=== PATIENT | female | born 1990 | race Caucasian/White ===

== ENCOUNTER 2022-05-24 15:33 | Emergency (ER) | payer MEDICAID, SELFPAY ==
[2022-05-24 15:45] VITALS: BP 123/79; PULSE 77; RESP 16; TEMP 36.5; O2SAT 100; BMI 25.1
--- NOTE | 2022-05-24 18:30 | ED_ITS ---
HPI - General Adult General Chief complaint: Extremity Pain/Injury, Lower Stated complaint: PAIN IN KNEES Time Seen by Provider: 05/24/22 16:17 History of Present Illness HPI narrative: This 32-year-old female comes in reporting bilateral knee pain. She states that she is actually had this pain since age 17. She ran cross-country at that time and was having pain. Since then she has been running for exercise but complains of recurrent bilateral knee pain that is localized at the quadriceps tendon insertion into the patella. She states that she was told not to run anymore and has not been doing so over the past 5 years. Yet she continues to have pain and notes that at her work she frequently has to bend and squat and sometimes she is not able to get up because of pain in this area of her knees. She has been to physical therapy on 3 different occasions which did provide some relief. She also has had x-ray imaging done in the distant past. She does not report any new injury event or strenuous activity. She is otherwise in good health. Related Data Home Medications Medication Instructions Recorded Confirmed gabapentin .ROUTE 05/24/22 Allergies Allergy/AdvReac Type Severity Reaction Status Date / Time No Known Drug Allergies Allergy Verified 05/24/22 15:49 Review of Systems Status of ROS: Reports: 10 or more systems reviewed and unremarkable except as noted in History and below Narrative: Constitutional: No fevers, no weight gain or loss. Eyes: No discharge. No vision changes. HENT: No congestion, no sore throat, no ear pain. Cardiovascular: No chest pain, no palpitations. Respiratory: No shortness of breath, no wheezes, no cough. Gastrointestinal: No abdominal pain, no vomiting, no diarrhea. Genitourinary: No dysuria, no hematuria. Musculoskeletal: Normal range of motion. Bilateral knee pain as described above. Skin: No rashes, no pruritis. Neurological: No dizziness, weakness, sensory change, speech change. Endo/Heme/Allergies: No bruising or bleeding. No polydipsia. Pysch: no suicidality, no anxiety, no insomnia. All other systems reviewed and are negative. [facility] Social History Smoking Status: Never smoker Do you use any of these nicotine containing products: None Second hand tobacco smoke exposure: No How often do you have a drink containing alcohol: never How often do you have six or more drinks on one occasion: Never AUDIT-C Alcohol total score: 0 Non-prescribed substance use: denies use service: No Exam Narrative: Exam Narrative: Constitutional: Well-developed, well-nourished, no acute distress. HEENT: Normocephalic, atraumatic. Neck: Normal range of motion. Nontender. Supple. Heart: Intact distal pulses. Lungs: No chest discomfort. No wheezes, rhonchi, or rales. Abdomen: Nontender. Back: Normal range of motion. Extremities: Normal range of motion. Bilateral knee pain as described above. She has tenderness when palpating where the quadriceps tendons insert on superior portion of the patella bilaterally. She does not have any joint effusion. There is no would ligament instability. She is able to raise each leg from the bed and is ambulating normally. Skin: Intact. No rash. Warm. No erythema or pallor. Neurologic: No altered sensation. No weakness. Alert and oriented. Psychiatric: No suicidality. No anxiety or depression. No insomnia. Nursing notes and vitals signs are reviewed. Const: Vital Signs, click to edit/add: Vital Signs - 24 hr 05/24/22 15:45 Temperature 97.7 F Pulse Rate [Pulse Oximeter] 77 Respiratory Rate 16 Blood Pressure [Ri ght Upper Arm] 123/79 Pulse Oximetry 100 Oxygen Delivery Me thod Room Air Course Vital Signs Vital signs: Initial Vital Signs Temperature 97.7 F 05/24/22 15:45 Temperature Source Temporal Artery Scan 05/24/22 15:45 Pulse Rate 77 05/24/22 15:45 Respiratory Rate 16 05/24/22 15:45 Blood Pressure 123/79 05/24/22 15:45 Blood Pressure Mean 93 05/24/22 15:45 Blood Pressure Position Supine 05/24/22 15:45 Pulse Oximetry 100 05/24/22 15:45 Oxygen Delivery Method 05/24/22 15:45 Vital Signs Temperature 97.7 F 05/24/22 15:45 Pulse Rate 77 05/24/22 15:45 Respiratory Rate 16 05/24/22 15:45 Blood Pressure 123/79 05/24/22 15:45 Pulse Oximetry 100 05/24/22 15:45 Oxygen Delivery Method 05/24/22 15:45 Temperature 97.7 F 05/24/22 15:45 Pulse Rate 77 05/24/22 15:45 Respiratory Rate 16 05/24/22 15:45 Blood Pressure 123/79 05/24/22 15:45 Pulse Oximetry 100 05/24/22 15:45 Oxygen Delivery Method 05/24/22 15:45 Medical Decision Making MDM Narrative Medical decision making narrative: This patient comes in with chronic and recently worsening bilateral knee pain as described above. I did discuss the role of imaging but this was declined for now given no specific mechanism of injury that x-ray imaging would benefit at this time. She also reports some hip pain and there is possibility that this may be related to a patellofemoral syndrome. I did make arrangements for follow-up with orthopedic clinic. She received a prescription for some tablets of tramadol. Discharge Plan Discharge Clinical Impression: Bilateral knee pain Patient Disposition: Home, Self-Care Condition: Stable Additional Instructions: Activity as tolerated. Follow up with orthopedic clinic. Use medication as needed and directed. Return if worsening. Prescriptions: No Action gabapentin .ROUTE Follow Up/Referrals: Bhavani Hamlin DO [Primary Care Provider] - Stand Alone Forms: [employer] Info Instructions
--- OUTSIDE RECORDS SUMMARY | 2022-05-24 18:44 | XMS_ITS | Clinical Summary ---
:1990 Author Organization [facility] Address [address], [place] [address] Care Team Providers Name Role Phone Unavailable Primary Care Provider Unavailable Source Comments You are receiving this document as you are listed as the primary care provider,follow-up provider, or the patient has been referred to you for consultation.This is in compliance with the Medicare and Medicaid EHR Incentive Program,which states Providers who transition their patient to another setting of careor provider of care or refers their patient to another provider of care shouldprovide summarycare record for each transition of care or referral. [employer] Allergies No known active allergies Medications Medication Sig Dispensed Refills Start Date End Date Status escitalopram oxalate Take 20 mg by 0 03/19/2021 Active (LEXAPRO) 20 MG tablet mouth. gabapentin (NEURONTIN) Take 300 mg by 0 02/11/2021 Active 300 MG capsule mouth. 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 CARSON (generalized anxiety disorder) 06/17/2021 Obsessive-compulsive disorder 06/17/2021 Vitamin D insufficiency 06/17/2021 Social History Tobacco Use Types Packs/Day Years Used Date Smoking Tobacco: Never Assessed Sex Assigned at Date Recorded Not on file Last Filed Vital Signs Vital Sign Reading Time Taken Comments Blood Pressure 138/94 06/17/2021 9:32 AM CDT Pulse 81 06/17/2021 9:32 AM CDT Temperature 36.7 ??C (98 ??F) 06/17/2021 9:30 AM CDT Respiratory Rate - - Oxygen Saturation - - Inhaled Oxygen Concentration - - Weight 59.6 kg (131 lb 6.4 oz) 06/17/2021 9:30 AM CDT Height 156.5 cm (5' 1.61) 06/17/2021 9:30 AM CDT Body Mass Index 24.34 06/17/2021 9:30 AM CDT Plan of Treatment Health Maintenance Due Date Last Done Comments Cervical Cancer Screening 1990 Due Hep C Screening (Preventive 1990 Services) HepB (1) 1990 COVID-19 Vaccine (#1) 1990 HepA (2 of 2 - 2-dose 09/19/2006 03/19/2006 series) HIV Screening (Preventive 2008 Services) Adult Preventive Visit 2010 Influenza (#1) 2022 07/01/2021, 05/22/2020, 05/27/2019, Additional history exists DTaP/Tdap/Td (4 - Tdap) 05/07/2025 05/07/2015, 05/13/2013, 11/20/2003, Additional history exists Zoster/Shingles (1 of 2) 2042 HPV Vaccine Aged Out No longer eligib le based on patient 's age to complete this topic Hib Aged Out No longer eligib le based on patient 's age to complete this topic IPV (Polio) Aged Out No longer eligib le based on patient 's age to complete this topic MCV4 Aged Out No longer eligib le based on patient 's age to complete this topic Pneumococcal Aged Out No longer eligib le based on patient 's age to complete this topic
--- OUTSIDE RECORDS SUMMARY | 2022-05-24 18:44 | XMS_ITS | Clinical Summary ---
:1990 Author Organization [employer] [facility] [place] [address] Care Team Providers Name Role Phone Bhavani Hamlin DO Primary Care Provider Allergies No known active allergies Medications Medication Sig Dispensed Refills Start Date End Date Status gabapentin Take 1 Capsule 180 capsule. 3 02/11/2021 Active (NEURONTIN) 300 mg (300 mg) by mouth capsuleIndications: 2 times daily. Vestibular migraine ferrous sulfate, 65 Take 1 Tablet 90 Tablet 3 03/19/2021 Active mg elemental, (325 mg) by mouth tabletIndications: once daily with a Iron deficiency meal. escitalopram oxalate Take 1 Tablet (20 90 Tablet 3 03/19/2021 Active (LEXAPRO) 20 mg mg) by mouth tabletIndications: every morning. Anxiety aluminum chloride Apply topically 35 mL 0 04/29/2022 Active (Drysol) 20 % to affected external area(s) at solutionIndications: bedtime. Pyogenic granuloma Active Problems Problem Noted Date History of premature rupture of membranes (PPR OM) 04/08/2018 [facility] Encounter for preconception consultation 8 Overview: [facility] PRECONCEPTION CONSULTATION ON 03/25/18 REASON FOR CONSULT: Pre preg consult, pr ior hx PPROM at 22 and 27 weeks [place] records are scanned in [facility] APPOINTMENT: MD Consultation PRIMARY DIAGNOSIS: 27 y.o. PTD - 2013 22w loss, PPROM, abruption, n eg quad, no autopsy PTD - 2017 PPROM, - living chorioam nionitis stage 2 on path report Hx self cutting at 17 yo Hx orthostatic hypotension Hx of seizure - one time Vertigo/Vestibular Migraines Hx MRSA - treated REFERRING PHYSICIAN/PHONE/LAST UPDATE: Jeannie Hamlin DO [place] [phone] Primary MD approves scheduling of recomm ended ultrasounds/testing: Yes SPECIALISTS/CONSULTS: [facility] Include: Specialty MD Clinic Name Phone# [place] GENETICS: PROCEDURES: PERTINENT LABS: Blood type A positive PERTINENT MEDS: Gabapentin - dizziness BCP MD PLAN OF CARE: Evaluation regarding contraception options 03/19/2017 MRSA (methicillin resistant staph aureus) culture posi tive 08/03/2015 Overview: +MRSA mastitis 07/2015 Prior with demise 12/22/2014 History of placenta abruption 12/22/2014 Deliberate self-cutting 04/17/2009 Resolved Problems Problem Noted Date Resolved Date Malpositioned intrauterine device (IUD) 04/02/2017 04/02/2017 IUD (intrauterine device) in place 03/26/201704/02 Overview: Ra 03/26/2017 - malpositioned - remov ed 04/02/2017 , subsequent 02/15/2015 07/28/2015 Overview: Perinatology consult at 15 weeks due to history of IUFD/PPROM. Ultrasound of 15 weeks with cervix 5 cm. Repeat level 2 ultrasound at 22 weeks with cervical length 5cm, per perinatology no further follow-up with perinatology needed Its the boy! History of premature rupture of membranes (PROM) in 12/22/2014 07/28/2015 previous , currently Breech delivery 04/29/2014 07/28/2015 premature rupture of membranes (PPROM) delivered, 07/28/2015 current hospitalization Threatened in second trimester 04/28/2014 07/28/2015 care, first 02/07/2014 4 Supervision of normal first 01/13/2014 Encounters Date Type Specialty Care Team Description 05/20/2022 Office Visit Laya Mao Consult (Pyogen ic granuloma MD Chey right side of f maribel/neck referred by Dr. Dasilva) 05/20/2022 Travel 04/30/2022 Telephone Kailyn Dasilva Prior A uthorization MD Taryn (aluminum chlor delphine (Drysol) 20 % external s olution DENIED/ EXCLUSI ON) 04/29/2022 Office Visit Kailyn Dasilva Derm Pr oblem (blood blister MD Taryn on right side o f neck) 04/29/2022 Travel 04/07/2022 Lab Requisition Homero Atkinson MD from Last 3 Months Immunizations Name Administration Dates Next Due AMB Influenza, IIV4 PF (=>6 mos 05/27/2019 Flulaval,Fluzone Fluarix)(Flu Clinic Only) Hepatitis A (Peds) 03/19/2006 Hepatitis B (Peds) 04/10/2004, 12/29/2003, 11/20/2003 Influenza Virus, Unspecified 06/11/2016 Influenza, IIV3 (Age 6-35 mos) 06/21/2015 Influenza, IIV4 07/01/2021, 05/22/2020, 05/25/2018, 05/24/2015 MMR 11/20/2003 Td (Age >=7 Years) 11/20/2003 Tdap 05/07/2015, 05/13/2013, 11/20/2003 Family History Medical History Relation Name Comments No Known Problems Brother 1 Good Health Brother 2 special needs/ l earning delay?(hemipl egic migraines and other medical is sues) Migraines Brother 2 color aura - the n hemiplegic Other Brother 2 pacemaker Seizures Brother 2 Anxiety disorder Father Migraines Father PTSD Father Hypertension Maternal Grandfather Other Maternal Grandmother migraines/f ibromyalgia Other Mother migraines Unknown Paternal Grandfather Alzheimer's disease Paternal Grandmother Bipolar disorder Sister 1 Other Sister 1 boderline person ality disorder Bipolar disorder Sister 2 Relation Name Status Comments Brother 1 Alive Brother 2 Alive Father Alive Maternal Grandfather Alive Maternal Grandmother Alive Mother Alive Paternal Grandfather Paternal Grandmother Alive Sister 1 Alive Sister 2 Alive Social History Tobacco Use Types Packs/Day Years Used Date Former Smoker Smokeless Tobacco: Never Used Tobacco Cessation: Counseling Given: Yes Alcohol Use Standard Drinks/Week Comments Yes 0 (1 standard drink = 0.6 oz pure once w eekly 2-3 drinks at a sitting alcohol) Alcohol Habits Answer Date Recorded How often do you have a drink 2-4 times a month 02/13/2020 containing alcohol? How many drinks containing alcohol do 1 or 2 you have on a typical day when you are drinking? How often do you have six or more Never 2018 drinks on one occasion? Comment: once weekly 2-3 drinks at a 01/01/2021 sitting Sex Assigned at Date Recorded Not on file COVID-19 Exposure Response Date Recorded In the last 10 days, have you been in contact with No / Unsu re 05/20/2022 12:58 PM CDT someone who was confirmed or suspected to have Coronavirus/COVID-19? Obstetrics History Para Term AB IAB SAB Ectopic Multiple Living Live Births 2 2 0 2 0 0 0 0 0 1 1 Date Outcome GA Total Labor/2nd/3rd Weight Sex Delivery Anes PTL Kami A 1 A5 Name Clin Labor 04/29 22w 0.65 kg M Vag Epidu Feta 0 0 El ias /2013 0d (1 lb 7 ral l oz) Shaneka se Comments: System Generated. Please review and update details. 05/09/2015 27w2d 1.11 kg (2 lb 7 oz) M Vag Y Living Last Filed Vital Signs Vital Sign Reading Time Taken Comments Blood Pressure 128/85 05/20/2022 1:06 PM CDT Pulse 79 05/20/2022 1:06 PM CDT Temperature 37.2 ??C (99 ??F) 09/28/2020 1:26 PM COMBAT CONTROL MANAGER Respiratory Rate 16 10/04/2019 10:19 AM COMBAT CONTROL MANAGER Oxygen Saturation 98% 05/20/2022 1:06 PM CDT Inhaled Oxygen Concentration - - Weight 55.1 kg (121 lb 6.4 oz) 01/01/2021 8:26 AM CDT Height 157 cm (5' 1.81) 01/01/2021 8:26 AM CDT Body Mass Index 22.34 01/01/2021 8:26 AM CDT Plan of Treatment Health Maintenance Due Date Last Done Comments Pap test for age 21-65 02/06/2020 02/05/2017, 05/13/2013 COVID-19 vaccine series (3 - 03/07/2021 01/10/2021, 021 Booster for Pfizer series) BMI (ht and wt on same day) for 01/01/2022 01/01/2021, 02/0 12/2020, age 18+ 05/09/2019, Additional history exists Depression screening for age 12+ 03/19/2022 03/19/2021, , 01/01/2021, Additional history exists Influenza for age 9-49 04/24/2022 07/01/2021, 05/22/2020, 05/27/2019, Additional history exists Tetanus booster 05/07/2025 05/07/2015, 05/13/2013, 11/20/2003, Additional history exists Hepatitis C screening for age Completed 12/02/2014 18-79 Tdap Completed 05/07/2015, 05/13/2013, 11/20/2003 Procedures Procedure Name Priority Date/Time Associated Comments Diagnosis QFT MITOGEN Routine 04/07/2022 11:15 Results for this PERFORMABLE AM CDT procedure are i n the results section. QFT TB2 PERFORMABLE Routine 04/07/2022 11:15 Resu lts for this AM CDT procedure are i n the results section. QFT TB1 PERFORMABLE Routine 04/07/2022 11:15 Resu lts for this AM CDT procedure are i n the results section. QUANTIFERON TB GOLD Routine 04/07/2022 11:15 Resu lts for this PLUS AM CDT procedure are i n the results section. QUANTIFERON TB GOLD Routine 04/07/2022 11:15 Resu lts for this PLUS AM CDT procedure are i n the results section. from Last 3 Months Results QFT MITOGEN PERFORMABLE (04/07/2022 11:15 AM CDT) P athologist Signature MITOGEN 3.21 IU/mL 2022 [facility] 11:04 AM CDT LABORATORY-CENTR AL LABORATORY Specimen Anatomical Collection Method Collection Time Receive d Time (Source) Location / / Volume Laterality Blood BLOOD SPECIMEN / Client Collect / 04/07/2022 11:15 8:38 Unknown Unknown AM CDT PM CDT Homero Atkinson MD CHEMISTRY Performing Organization Address City/[facility]/ZIP Code Phon e Number [facility] [address] [place] [address] LABORATORY-CENTRAL 2000 LABORATORY QFT TB2 PERFORMABLE (04/07/2022 11:15 AM CDT) P athologist Signature TB2 0.03 IU/mL 2022 [facility] 11:04 AM CDT LABORATORY-CENTR AL LABORATORY Specimen Anatomical Collection Method Collection Time Receive d Time (Source) Location / / Volume Laterality Blood BLOOD SPECIMEN / Client Collect / 04/07/2022 11:15 8:38 Unknown Unknown AM CDT PM CDT Homero Atkinson MD CHEMISTRY Performing Organization Address City/[facility]/ZIP Code Phon e Number [facility] [address] [place] [address] LABORATORY-CENTRAL 2000 LABORATORY QFT TB1 PERFORMABLE (04/07/2022 11:15 AM CDT) P athologist Signature TB1 0.04 IU/mL 2022 [facility] 11:04 AM CDT LABORATORY-CENTR AL LABORATORY Specimen Anatomical Collection Method Collection Time Receive d Time (Source) Location / / Volume Laterality Blood BLOOD SPECIMEN / Client Collect / 04/07/2022 11:15 8:38 Unknown Unknown AM CDT PM CDT Homero Atkinson MD CHEMISTRY Performing Organization Address City/[facility]/ZIP Code Phon e Number [facility] [address] [facility] [place] [address] LABORATORY-CENTRAL 2000 LABORATORY QUANTIFERON TB GOLD PLUS (04/07/2022 11:15 AM CDT) Patholo gist Method Time Signature QFTP NIL 0.01 2022 [facility] 11:34 AM LABORATORY-CE CDT NTRAL LABORATORY TB1 0.04 IU/mL 2022 [facility] 11:34 AM LABORATORY-CE CDT NTRAL LABORATORY TB2 0.03 IU/mL 2022 [facility] 11[facility]34 AM LABORATORY-CE CDT NTRAL LABORATORY MITOGEN 3.21 IU/mL 2022 [facility] 11:34 AM LABORATORY-CE CDT NTRAL LABORATORY QFTP TB AG1 - NIL 0.03 2022 [facility] 11:34 AM LABORATORY-CE CDT NTRWY LABORATORY QFTP TB AG2 - NIL 0.02 2022 [facility] 11:34 AM LABORATORY-CE CDT NTRWY LABORATORY QFTP MITOGEN - NIL 3.20 2022 [facility] 11:34 AM LABORATORY-CE CDT NTRAL LABORATORY QFTP QUANTIFERON Negative Negative 2022 [facility] 11:34 AM LABORATORY-CE CDT NTRAL LABORATORY Specimen Anatomical Collection Method Collection Time Receive d Time (Source) Location / / Volume Laterality Blood BLOOD SPECIMEN / Client Collect / 04/07/2022 11:15 8:38 Unknown Unknown AM CDT PM CDT Narrative [facility] LABORATORY-CENTRAL LABORAT ORY - 2022 11:34 AM CDT M. tuberculosis infection not likely, but cannot be excluded in cases of immunosuppression. CAUTION: The performance of QuantiFERON- TB Gold Plus has not been evaluated in specimens from: - Individuals with impaired or altered i mmune factors (HIV infections, transplant patients, those receieving immunosuppressive drugs such as corticosteroids) and those with other clinical conditions (e.g., diabetes, hematological disorders). - Individuals younger than 17 years old. ??Refer to CDC website for testing recommendations in children 6-17 years old. - women CAUTION: The performance of QuantiFERON- TB Gold Plus has not been evaluated in specimens from: - Individuals with impaired or altered i mmune factors (HIV infections, transplant patients, those receieving immunosuppressive drugs such as corticosteroids) and those with other clinical conditions (e.g., diabetes, hematological disorders). - Individuals younger than 17 years old. ??Refer to CDC website for testing recommendations in children 6-17 years old. - women Homero Atkinson MD CHEMISTRY Performing Organization Address City/State/ZIP Code Phon e Number [facility] [address] [place] [address] LABORATORY-CENTRAL 2000 LABORATORY from Last 3 Months Insurance Payer Benefit Plan / Subscriber ID Effective Phone Address T ype Group Dates WC WORKERS WC WORKERS COMP [id number] 2015-Pres [phone] [id number] [id number] BL[employer]OSS BL[employer] OF [id number] 2013-Prese [place] [address] [facility] [place] [address] [place] [id number] 2021-Prese [address] [place] [address] [place] [id number] 2015-Prese [address] [place] [address] Advance Directives Latest Code Status on File Code Status Date Activated Date Inactivated Comments Full Code 04/13/2015 7:13 AM 04/13/2015 10:59 AM Full Code 04/29/2014 2:47 PM 04/30/2014 2:01 PM Full Code 04/28/2014 6:16 PM 04/29/2014 10:47 AM Full Code 04/28/2014 2:18 PM 04/28/2014 5:11 PM Full Code 04/28/2014 2:10 PM 04/28/2014 2:18 PM 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
== END 2022-05-24 18:49 | disposition home or self-care (01) ==
PROVIDERS: Emergency Provider Emergency Medicine Emergency Medical Services; PCP Family Medicine
DX: M25.562 Pain in left knee (principal); M25.561 Pain in right knee
CPT/HCPCS: 99282; 99284

== ENCOUNTER 2022-11-15 20:34 | Emergency (ER) | payer MEDICAID, SELFPAY ==
[2022-11-15 20:41] VITALS: RESP 16; O2SAT 99
[2022-11-15 20:47] VITALS: BP 125/86; PULSE 89; RESP 18; TEMP 36.9; O2SAT 99; BMI 24.6
--- NOTE | 2022-11-15 21:34 | CRLHL7_ITS ---
For Patients: As a result of the Cures Act, medical imaging exams and procedure reports are released immediately into your electronic medical record. You may view this report before your referring provider. If you have questions, please contact your health care provider. INDICATION: Chest pain. TECHNIQUE: Chest 2 views. COMPARISON: None. FINDINGS: Lungs: Normal lung volume. No consolidation. The tracheobronchial tree and hilar structures are unremarkable. Pleura: No pleural effusion or pneumothorax. Heart and Mediastinum: Normal heart size. The great vessels of the thorax are unremarkable. Bones: No acute displaced osseous process. IMPRESSION: No consolidation. Dictated by Vitaliy Kilgore MD @ 11/15/2022 10:19:20 PM (Electronically Signed)
--- NOTE | 2022-11-15 21:36 | ED.GENADULT ---
HPI - General Adult General Chief complaint: Unspecified Complaint, Adult Stated complaint: Heart hurting all day Time Seen by Provider: 11/15/22 20:49 Source: patient Mode of arrival: ambulatory Limitations: no limitations History of Present Illness HPI narrative: 32-year-old female with no significant prior cardiac history presents to the emergency department with chest pain for the past 14 hours. Patient reports the pain started around 730 when she awoke this morning describes it is a left anterior focal pain in her chest originally started is achy and is now becoming more sharp and frequent. Initially, I was intermittent and lasting only a few seconds but would come frequently. It is now more constant and sharp in nature. It does not radiate. There is no neurological change or shortness of breath associated with this. It might get a little worse with a deep breath. She has had similar episodes every few months but only last a few minutes and this is different for her. Has not previously been worked up per her report. I do see a note from our system in October of 2019 where she was worked up for chest pain and found to be benign. No history of DVT or PE. Denies chance of . No known sick contacts. No fever. No nausea or vomiting. Normal appetite. No palpitations, no irregular heartbeat, no GERD symptoms. No recent injury or trauma. Pain cannot be reproduced with palpation of chest. Past medical history notable for vestibular migraines. Her only home medication is gabapentin 100 mg twice daily. She denies allergies. No recent surgeries. Socially she does smoke but denies any illicit drug use. ROS is notable only for the cardiac symptoms as above, otherwise denies times 12 systems. Related Data Home Medications Medication Instructions Recorded Confirmed gabapentin 300 mg capsule 300 mg PO BID 11/15/22 11/15/22 Allergies Allergy/AdvReac Type Severity Reaction Status Date / Time No Known Drug Allergies Allergy Verified 11/15/22 20:50 [facility] Medical History Anxiety ?F41.9 - Anxiety disorder, unspecified (ICD-10) History of placenta abruption ?Z87.59 - Personal history of other complications of , childbirth and the puerperium (ICD-10) History of premature rupture of membranes (PPROM) ?Z87.59 - Personal history of other complications of , childbirth and the puerperium (ICD-10) MRSA (methicillin resistant Staphylococcus aureus) ?A49.02 - Methicillin resistant Staphylococcus aureus infection, unspecified site (ICD-10) Orthostatic hypotension ?I95.1 - Orthostatic hypotension (ICD-10) Prior with demise ?O09.299 - Supervision of with other poor reproductive or obstetric history, unspecified trimester (ICD-10) Vestibular migraine ?G43.809 - Other migraine, not intractable, without status migrainosus (ICD-10) Surgical History History of thumb surgery (05/02/16) ?Z98.890 - Other specified postprocedural states (ICD-10) Status post surgical removal of both fallopian tubes (~2018) ?Z90.79 - Acquired absence of other genital organ(s) (ICD-10) Social History (Updated 05/27/22 @ 13:07 by Nancy Johnson ~ [facility], [facility]) Smoking Status: Current some day smoker What tobacco products do you use: cigarettes Do you use any of these nicotine containing products: None Second hand tobacco smoke exposure: No How often do you have a drink containing alcohol: never How often do you have six or more drinks on one occasion: Never AUDIT-C Alcohol total score: 0 Non-prescribed substance use: denies use service: No Exam Const: Vital Signs, click to edit/add: Vital Signs - 24 hr 11/15/22 20:47 11/15/22 20:41 11/15/22 21:42 Temperature 98.4 F 98.4 F Pulse Rate [Right Pulse Oximeter] 89 Respiratory Rate 18 Respiratory Rate [ Left Chest] 16 Blood Pressure [Ri ght Upper Arm] 125/86 Pulse Oximetry 99 Oxygen Delivery Me thod Room Air Documenting provider has reviewed patient's vital signs: yes Common normals: no apparent distress General appearance: cooperative, comfortable and well kempt HENMT: Face and sinus: normal facial exam Mouth: oral and palatal mucosa normal Throat: posterior oropharynx normal Eye: Common normals: conjunctivae normal General eye: normal appearance of both eyes Conjunctiva: conjunctiva(e) normal Neck & C-Spine: Common normals: full ROM and no lymphadenopathy Resp: Common normals: normal respiratory effort, no use of accessory muscles and clear to auscultation bilaterally Effort & inspection: able to speak in complete sentences Auscultation: clear to auscultation bilaterally Cardio: Common normals: regular rate, regular rhythm, S1 normal heart sound, S2 normal heart sound and no murmurs Rate: regular rate Rhythm: regular rhythm Heart sounds: S1 normal and S2 normal GI: Common normals: Normal to inspection, nondistended, normoactive bowel sounds present, soft to palpation, non-tender and no masses Palpation: soft Extremity: Common normals: normal capillary refill and no pedal edema Psych: Common normals: speech normal Appearance: well kempt Attitude: engaged Speech: normal speech Mood and affect: euthymic mood Insight: insight good Judgement: judgment good Skin: Common normals: no rashes or lesions noted General skin exam: no rashes or lesions noted Course Vital Signs Vital signs: Initial Vital Signs Respiratory Rate 16 11/15/22 20:41 Vital Signs Respiratory Rate 16 11/15/22 20:41 Temperature 98.4 F 11/15/22 21:42 Pulse Rate 89 11/15/22 20:47 Respiratory Rate 18 11/15/22 20:47 Blood Pressure 125/86 11/15/22 20:47 Pulse Oximetry 99 11/15/22 20:47 Oxygen Delivery Method Room Air 11/15/22 20:47 Medical Decision Making MDM Narrative Medical decision making narrative: Low risk for cardiovascular disease but recommend basic workup with EKG, troponin, screening labs and CRP level and chest x-ray. Will dose Toradol 10 mg p.o. x1 and await findings. Update: Toradol did improve pain. Normal x-ray and lab findings reviewed with patient. All questions answered. Alarm symptoms reviewed. Discharge home with conservative management, NSAIDs and Tylenol p.r.n.. Lab Data Lab results reviewed: Yes I reviewed the patient's lab results Lab results narrative: Reassuring Labs: Lab Results 11/15/22 Range/Units 21:47 WBC 8.62 (4.50-11.00) K/uL RBC 4.08 (4.00-5.20) m/uL Hgb 12.7 (12.0-16.0) gm/dL Hct 37.9 (33.0-51.0) % MCV 93 (80-100) fL MCH 31 (26-34) pg MCHC 34 (32-36) gm/dL RDW Coeff of Dean 12.4 (11.5-15.5) % Plt Count 263 (140-440) K/uL Neut % (Auto) 53.0 (42.0-72.0) % Lymph % (Auto) 32.0 (20-44) % [place] % (Auto) 9.5 (0.0-11.0) % Eos % (Auto) 5.2 (0.0-7.0) % Baso % (Auto) 0.2 (0.0-3.0) % Neut # (Auto) 4.56 (1.7-7.0) K/uL Lymph # (Auto) 2.76 (0.90-2.90) K/uL [place] # (Auto) 0.80 (0.00-0.90) K/UL Eos # (Auto) 0.45 (0.00-0.50) K/uL Baso # (Auto) 0.02 (0.00-0.30) K/uL D-Dimer Quant (PE/DVT) < 0.27 (0.00-0.50) ug/ml Sodium 138 (135-149) mmol/L Potassium 3.7 (3.6-5.1) mmol/L Chloride 105 (96-114) mmol/L Carbon Dioxide 28 (20-32) mmol/L BUN 17 (5-24) mg/dL Creatinine 0.7 (0.5-1.5) mg/dL Estimated Creat Clear 88.68 Estimated GFR 119 ml/min Glucose 99 (60-115) mg/dL Calcium 8.5 (8.4-10.6) mg/dL C-Reactive Protein 1.0 (0.5-1.0) mg/dL POC Troponin I 0.00 L (0.01-0.04) ng/ml Imaging Data Chest x-ray: Attestation: I have reviewed the pertinent imaging results. My impression: Normal chest x-ray Radiologist's impression: IMPRESSION: No consolidation. ECG Data Attestation: I personally reviewed and interpreted this ECG as follows: Prior ECG tracings: not available for review Interpretation: Normal sinus rhythm, rate [address] or T-wave abnormalities. Normal axis. Discharge Plan Discharge Clinical Impression: Chest pain, non-cardiac Patient Disposition: Home w/ Parent or Adult Condition: Improved Instructions: Noncardiac Chest Pain (ED) Additional Instructions: As we discussed, there are no signs of anything dangerous going on today. The blood tests x-ray that we ran show no signs of problems with your heart, lungs, blood clots, kidneys or electrolytes. Your inflammatory markers were also normal. Most of the time in these situations when the workup is normal, we find that your symptoms are usually caused by a pulled muscle in the ribs or a mild inflammation of the lining of the lungs from a viral infection. Both are benign. I am glad that your pain improved with the Toradol. He will get similar results from ibuprofen. You may take 600 mg every 6 hours as needed. You may take Tylenol as an alternative or as an adjunct to the ibuprofen if the pain is more bothersome. You do not have to take any medication if it is not bothersome enough to do so. If you continue to have episodes, I recommend he make a follow-up appointment with your primary care provider to explore other etiologies. In the emergency department, we have determined that there are no emergent reasons for the chest pain but there could be other explanations as well. Come back to the emergency department if the pain is severe and accompanied by shortness of breath, vomiting blood, very rapid heartbeat or passing out. Activity Level: No Restrictions Discharge Diet: Regular Prescriptions: No Action gabapentin 300 mg capsule 300 mg PO BID Follow Up/Referrals: Bhavani Hamlin DO [Primary Care Provider] - Stand Alone Forms: Physcient Info Instructions
[2022-11-15 21:42] VITALS: TEMP 36.9
[2022-11-15] MEDS: KETOROLAC 10 MG TABLET PO (21:42)
[2022-11-15 22:00] LABS: Basophils Absolute Auto 0.02 K/uL (0.00-0.30); Basophils Percent Auto 0.2 % (0.0-3.0); Eosinophils Absolute Auto 0.45 K/uL (0.00-0.50); Eosinophils Percent Auto 5.2 % (0.0-7.0); Hematocrit 37.9 % (33.0-51.0); Hemoglobin* 12.7 gm/dL (12.0-16.0); Immature Granulocytes Abs Auto 0.01 K/uL (0.00-0.30); Immature Granulocytes Pct Auto 0.1 %; Lymphocytes Absolute Auto 2.76 K/uL (0.90-2.90); Mean Corpuscular HGB Conc 34 gm/dL (32-36); Mean Corpuscular Hemoglobin 31 pg (26-34); Mean Corpuscular Volume 93 fL (80-100); Monocytes Percent Auto 9.5 % (0.0-11.0); Neutrophils Absolute Auto 4.56 K/uL (1.7-7.0); Platelet Count* 263 K/uL (140-440); RDW Coefficient of Variation % 12.4 % (11.5-15.5); Red Blood Count 4.08 m/uL (4.00-5.20); White Blood Count* 8.62 K/uL (4.50-11.00)
[2022-11-15 22:03] LABS: Slide Review Reflex No
[2022-11-15 22:12] LABS: Chloride* 105 mmol/L (96-114); Potassium* 3.7 mmol/L (3.6-5.1); Sodium* 138 mmol/L (135-149)
[2022-11-15 22:15] LABS: Blood Urea Nitrogen* 17 mg/dL (5-24); Carbon Dioxide* 28 mmol/L (20-32); Creatinine* 0.7 mg/dL (0.5-1.5); Est. Creatinine Clearance* 88.68; Estimated Glomerular Filt Rate 119 ml/min
[2022-11-15 22:16] LABS: Calcium* 8.5 mg/dL (8.4-10.6); Glucose* 99 mg/dL (60-115)
[2022-11-15 22:21] LABS: D Dimer Quantitative* < 0.27 ug/ml (0.00-0.50)
[2022-11-15 22:32] LABS: Troponin I* < 0.01 ng/mL (0.01-0.04)
[2022-11-15 22:35] VITALS: BP 118/78; PULSE 84; RESP 18; TEMP 36.9; O2SAT 99
== END 2022-11-15 22:35 | disposition home or self-care (01) ==
LOC: ED 22:34
PROVIDERS: Emergency Provider Family Medicine; PCP Family Medicine
DX: R07.9 Chest pain, unspecified (principal)
CPT/HCPCS: 36415; 71046; 80048; 84484; 85025; 85379; 86140; 93005; 99283; 99284; A9270

== ENCOUNTER 2023-09-04 08:03 | Outpatient (CLI) | payer MEDICAID, SELFPAY ==
--- OUTSIDE RECORDS SUMMARY | 2023-09-04 08:07 | XMS_ITS | Clinical Summary ---
Author Name Unknown Organization [facility] Address [place], [place] [address] Care Team Providers Care Raw Material Planner Name Role Phone Bhavani Hamlin DO Primary Care Provider [phone] Allergies No known active allergies Medications Medication Sig Dispensed Refills Start Date End Date Status multivitamin (MVI) tablet Take 1 Tablet by mouth once daily. 0 11/18/2022 Active Lactobacillus rhamnosus GG 5 billion cell chew Chew by mouth. 0 11/18/2022 Act barb gabapentin (NEURONTIN) 100 mg capsuleIndications:V estibular migraine 200mg twice daily x 1wk, then 100mg twice daily x 1wk, then 100mg lackey then stop 49 Capsule 0 11/18/2022 Active propranolol ER (INDERAL LA) 60 mg Cs24 Sustained-Release capsuleIndications:V estibular migraine Take 1 Capsule (60 mg) by mouth once daily. 90 Capsule 1 11/18/2022 Active meclizine (ANTIVERT) 25 mg tabletIndications:Ve stibular migraine Take 0.5-1 Tablets (12.5-25 mg) by mouth 3 times daily if needed (vestibular migraine). 30 Tablet 0 11/18/2022 Active Active Problems Problem Noted Date Diagnosed Date Pap smear for cervical cancer screening 08/28/19 23 Overview: 06/2022: NIL/HPV neg. Plan: Pap and HPV in 5 years. Anorexia nervosa, restricting type 07/23/2022 History of premature rupture of membrane s (PPROM) 04/08/2018 [facility] Encounter for preconception consultation Overview: [facility] PRECONCEPTION CONSULTATION ON 03/25/18 REASON FOR CONSULT: Pre preg consult, prior hx PPROM at 22 and 27 weeks [place] records are scanned in [facility] APPOINTMENT: MD Consultation PRIMARY DIAGNOSIS: 27 y.o. PTD - 2013 22w loss, PPROM, abruption, neg quad, no autopsy PTD - 2016 PPROM, - living chorioamnionitis stage 2 on path report Hx self cutting at 17 yo Hx orthostatic hypotension Hx of seizure - one time Vertigo/Vestibular Migraines Hx MRSA - treated REFERRING PHYSICIAN/PHONE/LAST UPDATE: Bhavani Hamlin DO [facility] [phone] Primary MD approves scheduling of recommended ultrasounds/testing: Yes SPECIALISTS/CONSULTS: [facility] Include: Specialty MD Clinic Name Phone# [place] GENETICS: PROCEDURES: PERTINENT LABS: Blood type A positive PERTINENT MEDS: Gabapentin - dizziness BCP MD PLAN OF CARE: Evaluation regarding contraception options 03/19 MRSA (methicillin resistant staph aureus) cultur e positive 08/03/2015 Overview: +MRSA mastitis 07/2015 Prior with demise 12/22/2014 History of placenta abruption 12/22/2014 Deliberate self-cutting 04/17/2009 Resolved Problems Problem Noted Date Diagnosed Date Resolved Date Malpositioned intrauterine device (IUD) 04/02/2017 04/02/2017 IUD (intrauterine device) in place 03/26/2017 04/02/2017 Overview: [place] 03/26/2017 - malpositioned - removed 04/02/2017 , subsequent 02/15/20152014 Overview: Perinatology consult at 15 weeks due to history of IUFD/PPROM. Ultrasound of 15 weeks with cervix 5 cm. Repeat level 2 ultrasound at 22 weeks with cervical length 5cm, per perinatology no further follow-up with perinatology needed Its the boy! History of premature rupture of membranes (PROM) in previous , currently 12/22/2014 07/28/2015 Breech delivery 04/29/2014 07/28/2015 premature rupture of membranes (PPROM) delivered, current hospitalization 04/28/2014 07/28/2015 Threatened in second trimester 04/28/2014 07/28/2015 care, first 02/07/2014 04/29/2014 Supervision of normal first 01/13/2014 04/29/2014 Immunizations Name Administration Dates Next Due AMB Influenza, IIV4 PF (=>6 mos Flulaval,Fluzone Fluarix)(Flu Clinic Only) 05/27/2019 Hepatitis A (Peds) 03/19/2006 Hepatitis B (Peds) 04/10/2004,12/29/2003, 004 Influenza Virus, Unspecified 06/11/2016 Influenza, IIV3 (Age 6-35 mos) 06/21/2015 Influenza, IIV4 07/09/2022,,05/22/2020,2017,05/24/2015 MMR 11/20/2003 Td (Age >=7 Years) 11/20/2003 Tdap 05/07/2015,05/13/2013,11/20/2003 Family History Medical History Relation Name Comments No Known Problems Brother 1 Good Health Brother 2 special needs/ learning delay?(hemiplegic migraines and other medical issues) Migraines Brother 2 color aura - th en hemiplegic Other Brother 2 pacemaker Seizures Brother 2 Anxiety disorder Father Migraines Father PTSD Father Hypertension Maternal Grandfather Other Maternal Grandmother migrain es/fibromyalgia Other Mother migraines Unknown Paternal Grandfather Alzheimer's disease Paternal Grandmother Bipolar disorder Sister 1 Other Sister 1 boderline perso nality disorder Bipolar disorder Sister 2 Relation Name Status Comments Brother 1 Alive Brother 2 Alive Father Alive Maternal Grandfather Alive Maternal Grandmother Alive Mother Alive Paternal Grandfather Paternal Grandmother Alive Sister 1 Alive Sister 2 Alive Social History Tobacco Use Types Packs/Day Years Used Date Smoking Tobacco: Every Day Cigarettes 0.4 15 Started: 2004; Last attempted to quit: 2015 Passive Smoke Exposure: Past Smokeless Tobacco: Never Tobacco Cessation:Ready to Q uit: Not Asked; Counseling Given: Not Answered Alcohol Use Standard Drinks/Week Comments Yes 0 (1 standard drink = 0.6 oz pur e alcohol) occ PHQ-2 Answer Date Recorded PHQ-2 TOTAL SCORE 1 07/23/2022 Social Connections Answer Date Recorded Frequency of Communication with Friends and Fami ly Not on file 05/08/2023 Alcohol Use Answer Date Recorded How often do you have a drink containing alcohol ? 2 07/23/2022 How many drinks containing a lcohol do you have on a typical day when you are drinking? 0 07/23/2022 How often do you have five or more drinks on one occasion? 0 07/23/2022 Financial Resource Strain Answer Date R ecorded Difficulty of Paying Living Expenses 3 04/29/2022 Difficulty of Paying Living Expenses Not on file 04/29/2022 Food Insecurity Answer Date Recorded Worried About Running Out of Food in the Last Ye ar 1 04/29/2022 Transportation Needs Answer Date Record ed Lack of Transportation (Medical) 1 04/29/2022 Housing Stability Answer Date Recorded Unable to Pay for Housing in the Last Year 1 04/29/2022 Sex and Gender Information Value Date Recorded Sex Assigned at Not on file Gender Identity Not on file Sexual Orientation Not on file Obstetrics History Para Term AB IAB SAB Ectopic Multiple Livin g Live Births 2 2 0 2 0 0 0 0 0 1 1 Date Outcome GA Total Labor Labor/2nd/3rd Weight Sex Delivery Anes PTL Kami A1 A5 Name Cl in 04/29 22w 0d 0.65 kg (1 lb 7 oz) M Vag Epidu ral Feta l Shaneka se 0 0 Sukhjinder Comments:System Genera angela. Please review and update details. 05/09 27w 2d 1.11 kg (2 lb 7 oz) M Vag Y Lauren ng Last Filed Vital Signs Vital Sign Reading Time Taken Comments Blood Pressure 120/78 02/09/2023 4:30 PM CDT Pulse 108 02/09/2023 3:21 PM CDT Temperature 37.2 ??C (99 ??F) 09/28/2020 1:26 PM PHOTOGRAPHIC PROCESS ATTENDANT Respiratory Rate 16 10/04/2019 10:19 AM PHOTOGRAPHIC PROCESS ATTENDANT Oxygen Saturation 100% 02/09/2023 3:21 PM CDT Inhaled Oxygen Concentration - - Weight 57.2 kg (126 lb) 02/09/2023 3:21 PM CDT Height 157 cm (5' 1.81) 06/24/2022 1:22 PM CDT Body Mass Index 23.19 06/24/2022 1:22 PM CDT Plan of Treatment Upcoming Encounters Date Type Department Care Team (Late st Contact Info) Description 09/09/2023 9:35 AM PHOTOGRAPHIC PROCESS ATTENDANT Office Visit [facility] [address] [place] [address] Bhavani Hamlin DO [address] [place] [address] Health Maintenance Due Date Last Done Comments Pneumococcal series for age 6-64 (1 of 2 - PCV) 1998 COVID-19 vaccine series ( - 2022- season) 2023 01/10/2021, 12/20/2020 Influenza for age 9-49 04/24/2023 , 07/01/2021, 05/22/2020, Additional history exists BMI (ht and wt on same day) for age 18+ 06/24/2023 06/24/2022, 01/01/2021, 09/28/2020, Additional history exists Depression screening for age 12+ 07/26/2023 07/26/2022, 07/23/2022, 03/19/2021, Additional history exists Tetanus booster 05/07/2025 05/07/2015, 04/25, 11/20/2003, Additional history exists Pap test for age 21-65 07/23/2027 , 07/23/2022, 02/05/2017, Additional history exists HIV for age 15-65 Completed 12/02/2014, 01/13/2014 Tdap Completed 05/07/2015, 04/25, 11/20/2003 Hepatitis C screening for ag e 18-79 Completed 07/23/2022, 12/02/2014 Advance Directives Latest Code Status on File Code Status Date Activated Date Inactivated Comments Full Code 04/13/2015 7:13 AM 04/13/2015 10:59 AM Code Status History Code Status Date Activated Date Inactivated Comments Full Code 04/29/2014 2:47 PM 04/30/2014 2:01 PM Full Code 04/28/2014 6:16 PM 04/29/2014 10:47 AM Full Code 04/28/2014 2:18 PM 04/28/2014 5:11 PM Full Code 04/28/2014 2:10 PM 04/28/2014 2:18 PM Care Teams Raw Material Planner Relationship Specialty Start Date End Date Bhavani Hamlin [place] [address] [place] [address] PCP - General Family Practice 12/02/14
--- OUTSIDE RECORDS SUMMARY | 2023-09-04 08:07 | XMS_ITS | Clinical Summary ---
Author Name Unknown Organization [facility] Address [address] [place] [address] Care Team Providers Care Director Work Name Role Phone Unavailable Primary Care Provider Unavailabl e Source Comments You are receiving this document as you are listed as the primary care provider,follow-up provider, or the patient has been referred to you for consultation.This is in compliance with the Medicare and[facility] EHR Incentive Program,which states Providers who transition their patient to another setting of careor provider of care or refers their patient to another provider of care shouldprovide summary care record for each transition of care or referral. [facility] Allergies No known active allergies Medications Medication Sig Dispensed Refills Start Date End Date Status escitalopram oxalate (LEXAPRO) 20 MG tablet Take 20 mg by mouth. 0 03/19/2021 Active gabapentin (NEURONTIN) 300 MG capsule Take 300 mg by mouth. 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 CARSON (generalized anxiety disorder) 06/17/2021 Obsessive-compulsive disorder 06/17/2021 Vitamin D insufficiency 06/17/2021 Social History Tobacco Use Types Packs/Day Years Used Date Smoking Tobacco: Never Assessed Sex and Gender Information Value Date Recorded Sex Assigned at Not on file Gender Identity Not on file Sexual Orientation Not on file Last Filed Vital Signs Vital Sign Reading Time Taken Comments Blood Pressure 138/94 06/17/2021 9:32 AM CDT Pulse 81 06/17/2021 9:32 AM CDT Temperature 36.7 ??C (98 ??F) 06/17/2021 9:30 AM CDT Respiratory Rate - - Oxygen Saturation - - Inhaled Oxygen Concentration - - Weight 59.6 kg (131 lb 6.4 oz) 06/17/2021 9:30 A M CDT Height 156.5 cm (5' 1.61) 06/17/2021 9:30 AM CD T Body Mass Index 24.34 06/17/2021 9:30 AM CDT Plan of Treatment Health Maintenance Due Date Last Done Comments Cervical Cancer Screening Due 1992 Hep C Screening (Preventive Services) 1992 HepB (1) 1992 COVID-19 Vaccine (#1) 1992 HepA (2 of 2 - 2-dose series) 09/19/2006 03/19/2006 HIV Screening (Preventive Services) 2008 Adult Preventive Visit 2010 Influenza (#1) 2023 07/01/2021, 04/25, 05/27/2019, Additional history exists DTaP/Tdap/Td (4 - Tdap) 05/07/2025 05/07/20, 05/13/2013, 11/20/2003, Additional history exists Zoster/Shingles (1 of 2) 2042 HPV Vaccine Aged Out No longer eligi ble based on patient's age to complete this topic Hib Aged Out No longer eligi ble based on patient's age to complete this topic IPV (Polio) Aged Out No longer eligi ble based on patient's age to complete this topic MCV4 Aged Out No longer eligi ble based on patient's age to complete this topic Pneumococcal Aged Out No longer eligi ble based on patient's age to complete this topic
--- NOTE | 2023-09-04 08:15 | MR_ITS ---
[address] [address] Phone:?[phone] Fax:?[phone] Referring Physician Information: Richmond Arevalo M.D. [address] [facility] [address] Phone:?[phone] Fax:?[phone] Patient:David Salas D.O.B:?1990 Sex:?Female Phone:?[phone] [facility] MRN:?[id number] Exam Date:?09/04/2023 EXAM: MRI OF THE LEFT KNEE CLINICAL INFORMATION: The patient is a 33-year-old with left knee pain. Evaluate for synovitis. Evaluate for internal derangement. PRIOR SURGERY: None reported. COMPARISON STUDIES: Comparison is made to prior radiographs dated 09/01/2023. TECHNICAL INFORMATION: Imaging was produced on a high-field, 1.5 Helga MR scanner. Axial proton-density and fat-suppressed T2 imaging was performed in addition to sagittal proton-density and fat-suppressed proton-density imaging. Coronal proton-density and coronal STIR imaging was also performed. FINDINGS: Articular/Extraarticular collections: Effusion: Mild. No well-defined areas of synovial proliferation are seen to suggest synovitis. Popliteal cyst: Minimal. Loose bodies: No well-defined intra-articular loose bodies are present. Subcutaneous and extraarticular soft tissues: Unremarkable. Osseous structures: No evidence for marrow edema or cortical injury. No evidence for fracture or stress injury. No evidence for destructive bony lesion. Ligamentous structures: ACL: Intact and normal in appearance. PCL: Intact and normal in appearance. MCL: Intact and normal in appearance. LCL: Intact and normal in appearance. Posterolateral corner: Intact and normal in appearance. Posteromedial corner: No posteromedial corner soft tissue injury. Semimembranosus and pes anserine tendons demonstrate no tendinopathy or associated bursitis. Extensor mechanism/Patellar retinacular structures: Patellar tendon: Intact, without tendinopathy. Quadriceps tendon: Mild tendinosis and splitting of the distal quadriceps tendon fibers can be seen. There is no evidence for transverse tearing. Retinacula: The medial and lateral retinacula are intact. The medial patellofemoral ligament is intact. Medial compartment: Medial meniscus: No evidence for medial meniscal tearing can be seen. There is no evidence for parameniscal cyst formation. No meniscocapsular separation injury is identified. Medial femoral condyle: No chondromalacia, chondral defect, or osteochondral abnormality. Medial tibial plateau: No chondromalacia, chondral defect, or osteochondral abnormality. Lateral compartment: Lateral meniscus: No evidence for lateral meniscal tearing is present. No evidence for parameniscal cyst formation can be seen. Lateral femoral condyle: No chondromalacia, chondral defect, or osteochondral abnormality. Lateral tibial plateau: No chondromalacia, chondral defect, or osteochondral abnormality. Patellofemoral compartment: Patella: No chondromalacia, chondral defect, or osteochondral abnormality. Trochlea: No chondromalacia, chondral defect, or osteochondral abnormality. Neurovascular: No definite neurovascular abnormalities are seen. CONCLUSION: 1. Mild knee joint effusion and minimal popliteal cyst. No definite evidence for synovitis can be seen. 2. Mild distal quadriceps tendinosis. The patellar tendon is normal in appearance. 3. The cruciate and collateral ligaments appear intact. 4. No evidence for medial or lateral meniscal tearing is seen. 5. No acute bony abnormalities are present. AEC Electronically signed on 09/04/2023 1:31:00 PM by Jose Hutchins M.D.
--- NOTE | 2023-09-04 09:15 | MR_ITS ---
[address] [address] Phone:?[phone] Fax:?[phone] Referring Physician Information: Richmond Arevalo M.D. [address] [facility] [address] Phone:?[phone] Fax:?[phone] Patient:David Salas D.O.B:?1990 Sex:?Female Phone:?[phone] [facility] MRN:?[id number] Exam Date:?09/04/2023 EXAM: MRI OF THE RIGHT KNEE CLINICAL INFORMATION: The patient is a 33-year-old with right knee pain. Evaluate for synovitis. Evaluate for internal derangement. PRIOR SURGERY: None reported. COMPARISON STUDIES: Comparison is made to prior radiographs dated 09/01/2023. TECHNICAL INFORMATION: Imaging was produced on a high-field, 1.5 Helga MR scanner. Axial proton-density and fat-suppressed T2 imaging of the right knee was performed in addition to sagittal proton-density and fat-suppressed proton- density imaging. Coronal proton-density and coronal STIR imaging was also produced. FINDINGS: Articular/Extraarticular collections: Effusion: Minimal. No evidence for synovial proliferation within the joint space can be seen to suggest synovitis. Popliteal cyst: Minimal. Loose bodies: No well-defined intra-articular loose bodies are present. Subcutaneous and extraarticular soft tissues: Within normal limits. Osseous structures: No evidence for marrow edema or cortical injury. No evidence for fracture or stress injury. No evidence for destructive bony lesion. Ligamentous structures: ACL: Intact and normal in appearance. PCL: Intact and normal in appearance. MCL: Intact and normal in appearance. LCL: Intact and normal in appearance. Posterolateral corner: Intact and normal in appearance. Posteromedial corner: No posteromedial corner soft tissue injury. Semimembranosus and pes anserine tendons demonstrate no tendinopathy or associated bursitis. Extensor mechanism/Patellar retinacular structures: Patellar tendon: Intact, without tendinopathy. Quadriceps tendon: There is thickening of the central and lateral aspects of the distal quadriceps tendon with surrounding soft tissue edema and/or hemorrhage. Longitudinal splitting is seen. The findings are in keeping with mild to moderate distal quadriceps tendinosis. No evidence for transverse tearing is seen. Retinacula: The medial and lateral retinacula are intact. The medial patellofemoral ligament is intact. Medial compartment: Medial meniscus: No evidence for medial meniscal tearing can be seen. There is no evidence for parameniscal cyst formation. No meniscocapsular separation injury is identified. Medial femoral condyle: No chondromalacia, chondral defect, or osteochondral abnormality. Medial tibial plateau: No chondromalacia, chondral defect, or osteochondral abnormality. Lateral compartment: Lateral meniscus: No evidence for lateral meniscal tearing is present. No evidence for parameniscal cyst formation can be seen. Lateral femoral condyle: No chondromalacia, chondral defect, or osteochondral abnormality. Lateral tibial plateau: No chondromalacia, chondral defect, or osteochondral abnormality. Patellofemoral compartment: Patella: No chondromalacia, chondral defect, or osteochondral abnormality. Trochlea: No chondromalacia, chondral defect, or osteochondral abnormality. Neurovascular: No definite neurovascular abnormalities are seen. CONCLUSION: 1. Mild to moderate distal quadriceps tendinosis as described above. No evidence for transverse tearing is seen. The patellar tendon is within normal limits. 2. Minimal knee joint effusion and minimal popliteal cyst. No evidence for synovitis can be seen. 3. No bony injuries are identified. 4. No evidence for medial or lateral meniscal tearing is seen. 5. The cruciate and collateral ligaments appear intact. 6. No chondral injuries along the articular surfaces are noted. AEC Electronically signed on 09/04/2023 1:27:00 PM by Jose Hutchins M.D.
== END 2023-09-04 08:04 | disposition home or self-care (01) ==
LOC: MRI 08:05
PROVIDERS: PCP Family Medicine; Visit Provider Orthopaedic Surgery Sports Medicine
DX: M25.561 Pain in right knee (principal); M25.461 Effusion, right knee; M23.91 Unspecified internal derangement of right knee; M23.92 Unspecified internal derangement of left knee; M25.462 Effusion, left knee; M65.9 Synovitis and tenosynovitis, unspecified
CPT/HCPCS: 73721

== ENCOUNTER 2024-10-24 08:21 | Emergency (ER) | payer SELFPAY ==
--- OUTSIDE RECORDS SUMMARY | 2024-10-24 08:23 | XMS_ITS | Clinical Summary ---
Author Organization [facility] Address [address] [place] [address] Care Team Providers Care Bicycle Rental Clerk Name Role Phone Unavailable Primary Care Provider Unavailabl e Source Comments You are receiving this document as you are listed as the primary care provider,follow-up provider, or the patient has been referred to you for consultation.This is in compliance with the Medicare and[facility] EHR Incentive Program,which states Providers who transition their patient to another setting of careor provider of care or refers their patient to another provider of care shouldprovide summary care record for each transition of care or referral. [employer] Allergies No known active allergies Medications * This document contains information received from the source organization and may not represent a complete record from that organization. escitalopram oxalate (LEXAPRO) 20 MG tablet Take 20 mg by mouth. 03/19/2021 Active gabapentin (NEURONTIN) 300 MG capsule Take 300 mg by mouth. 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 CARSON (generalized anxiety disorder) 06/17/2021 Obsessive-compulsive disorder 06/17/2021 Vitamin D insufficiency 06/17/2021 Social History Tobacco Use Types Packs/Day Years Used Date Smoking Tobacco: Never Assessed Comments No Sex and Gender Information Value Date Recorded Sex Assigned at Not on file Legal Sex Female 12:41 PM CDT Gender Identity Not on file Sexual Orientation Not on file Last Filed Vital Signs Vital Sign Reading Time Taken Comments Blood Pressure 138/94 06/17/2021 9:32 AM CDT Pulse 81 06/17/2021 9:32 AM CDT Temperature 36.7 C (98 F) 06/17/2021 9:30 AM CDT Respiratory Rate - [...] 1990 Hep C Screening (Preventive Services) 1990 HepA (2 of 2 - 2-dose series) 09/19/2006 03/19/2006 HIV Screening (Preventive Services) 2008 Adult Preventive Visit 2010 HepB (1) 2011 COVID-19 Vaccine ( season) 2024 Influenza (#1) 2024 07/01/2021, 04/25, 05/27/2019, Additional history exists DTaP/Tdap/Td (4 - Tdap) 05/07/2025 05/07/20 15, 05/13/2013, 11/20/2003, Additional history exists Zoster/Shingles (1 [...] on patient's age to complete this topic Meningococcal B Aged Out No longer el igible based on patient's age to complete this topic Pneumococcal Aged Out No longer eligi ble based on patient's age to complete this topic
[2024-10-24 08:35] VITALS: BP 111/75; PULSE 102; RESP 18; TEMP 38.4; O2SAT 99; BMI 24.6
--- NOTE | 2024-10-24 09:07 | ED.GENADULT ---
HPI - General Adult General Time Seen by Provider: 09:07 Date Seen: 10/24/24 Chief complaint: Chest Pain Stated complaint: cough, chest hurts, dehydrated Time Seen by Provider: 10/24/24 09:07 Source: patient and RN notes reviewed Mode of arrival: ambulatory Limitations: no limitations History of Present Illness HPI narrative: this 34-year-old female is coming in with concern of ongoing cough. She started with a cough a week ago on Thursday. It progressed and she really started feeling ill on Thursday. She thinks she has had fevers, cough is worsened. Her chest hurts from coughing. She has felt dizzy. She has body aches, headache, sore throat. She has no GI symptomatology with this, no nausea vomiting or diarrhea. 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 She did do a home COVID test which was negative. She has been trying Robitussin [id number]. She has been taking in fluids, had chicken noodle soup yesterday. No history of asthma or lung disease. Related Data Previous Rx's ?Medication ?Instructions ?Recorded codeine 10 mg-guaifenesin 100 mg/5 5 ml PO Q6H PRN #120 mL 10/24/24 mL oral liquid (Guaifenesin AC) Allergies Allergy/AdvReac Type Severity Reaction Status Date / Time No Known Drug Allergies Allergy Verified 10/24/24 08:41 Review of Systems Status of ROS: Reports: 6 or more systems reviewed and unremarkable except as noted in History and below [facility] Medical History Rupture of tendon of thumb Leg pain ?M79.606 - Pain in leg, unspecified (ICD-10) Laceration Influenza due to influenza virus, type B ?J10.1 - Influenza due to other identified influenza virus with other respiratory manifestations (ICD-10) Encounter for pre-operative examination ?Z01.818 - Encounter for other preprocedural examination (ICD-10) History of premature rupture of membranes (PPROM) ?Z87.59 - Personal history of other complications of , childbirth and the puerperium (ICD-10) MRSA (methicillin resistant Staphylococcus aureus) ?A49.02 - Methicillin resistant Staphylococcus aureus infection, unspecified site (ICD-10) History of placenta abruption ?Z87.59 - Personal history of other complications of , childbirth and the puerperium (ICD-10) Prior with demise ?O09.299 - Supervision of with other poor reproductive or obstetric history, unspecified trimester (ICD-10) Vestibular migraine ?G43.809 - Other migraine, not intractable, without status migrainosus (ICD-10) Orthostatic hypotension ?I95.1 - Orthostatic hypotension (ICD-10) Anxiety ?F41.9 - Anxiety disorder, unspecified (ICD-10) Surgical History Status post surgical removal of both fallopian tubes (~2018) ?Z90.79 - Acquired absence of other genital organ(s) (ICD-10) History of thumb surgery (05/02/16) ?Z98.890 - Other specified postprocedural states (ICD-10) Family History Brother Seizure disorder Social History Narrative: exercises regularly- runs 3x/week nonsmoker rarely consumes alcohol single, milking tech, 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 Smoking Status: Current some day smoker What tobacco products do you use: cigarettes Do you use any of these nicotine containing products: None Second hand tobacco smoke exposure: No How often do you have a drink containing alcohol: monthly or less AUDIT-C Alcohol total score: 1 Non-prescribed substance use: denies use service: No Exam Const: Vital Signs, click to edit/add: Vital Signs - 24 hr 10/24/24 08:35 Temperature 101.1 F H Pulse Rate [Pulse Oximeter] 102 H Respiratory Rate 18 Blood Pressure [Ri ght Upper Arm] 111/75 Pulse Oximetry 99 Oxygen Delivery Me thod Room Air Patient is heard coughing in her room throughout interaction. She is alert, interactive, looks like she does not feel well. She is breathing easily but does have a dry sounding cough that is prominent throughout the interaction. No hoarseness noted, no tachypnea. Sclera with some slight injection but no exudates, no drainage, no periorbital swelling or erythema. TMs canals are normal. Oropharynx with normal mucosa, no exudates erythema, normal dentition. Lungs actually are clear, good air entry, no wheezing crackles, no accessory muscle use. CV regular rate and rhythm, no murmur, normal S1-S2. Documenting provider has reviewed patient's vital signs: yes Course Course ED Course: Nursing staff collected triple viral swab. Did review with patient that she is febrile here, will order ibuprofen. Will do portable chest x-ray and CBC. If this is potentially ongoing viral upper respiratory illness, consider secondary bacterial infection or community-acquired pneumonia. She is currently hemodynamically stable, do not feel she needs further workup per interventions at this time. Need to decide if she has something that might respond to antibiotics. Reevaluation(s) Time of Reevaluation #1: 09:50 Reevaluation #1: Have reviewed with Rhonda she has influenza B. Will provide a note for work. She is out of the treatment window for Tamiflu to be effective. Discussed expectations for length of illness. Vital Signs Vital signs: Initial Vital Signs Temperature 101.1 F H 10/24/24 08:35 Temperature Source Temporal Artery Scan 10/24/24 08:35 Pulse Rate 102 H 10/24/24 08:35 Respiratory Rate 18 10/24/24 08:35 Blood Pressure 111/75 10/24/24 08:35 Blood Pressure Mean 87 10/24/24 08:35 Blood Pressure Position Sitting 10/24/24 08:35 Pulse Oximetry 99 10/24/24 08:35 Oxygen Delivery Method Room Air 10/24/24 08:35 Vital Signs Temperature 101.1 F H 10/24/24 08:35 Pulse Rate 102 H 10/24/24 08:35 Respiratory Rate 18 10/24/24 08:35 Blood Pressure 111/75 10/24/24 08:35 Pulse Oximetry 99 10/24/24 08:35 Oxygen Delivery Method Room Air 10/24/24 08:35 Temperature 101.1 F H 10/24/24 08:35 Pulse Rate 102 H 10/24/24 08:35 Respiratory Rate 18 10/24/24 08:35 Blood Pressure 111/75 10/24/24 08:35 Pulse Oximetry 99 10/24/24 08:35 Oxygen Delivery Method Room Air 10/24/24 08:35 Medications Administered Medications: Discontinued Medications Generic Name Dose Route Start Last Admin Trade Name Oliverq PRN Reason Stop Dose Admin Ibuprofen 600 mg 10/24/24 09:15 10/24/24 09:20 Ibuprofen 200 Mg Tablet PO 10/24/24 09:16 600 mg ONCE ONE Administration Medical Decision Making Lab Data Lab results reviewed: Yes I reviewed the patient's lab results Labs: Lab Results 10/24/24 10/24/24 Range/Units 08:45 09:24 WBC 2.82 L (4.50-11.00) K/uL RBC 4.51 (4.00-5.20) m/uL Hgb 14.3 (12.0-16.0) gm/dL Hct 42.2 (33.0-51.0) % MCV 94 (80-100) fL MCH 32 (26-34) pg MCHC 34 (32-36) gm/dL RDW Coeff of Dean 12.0 (11.5-15.5) % Plt Count 173 (140-440) K/uL Neut % (Auto) 50.4 (42.0-72.0) % Lymph % (Auto) 32.6 (20-44) % [place] % (Auto) 16.3 H (0.0-11.0) % Eos % (Auto) 0.7 (0.0-7.0) % Baso % (Auto) 0.0 (0.0-3.0) % Neut # (Auto) 1.40 L (1.7-7.0) K/uL Lymph # (Auto) 0.90 (0.90-2.90) K/uL [place] # (Auto) 0.50 (0.00-0.90) K/UL Eos # (Auto) 0.00 (0.00-0.50) K/uL Baso # (Auto) 0.00 (0.00-0.30) K/uL Abs Immat Gran (auto) 0.00 (0.00-0.30) K/uL Imm/Tot Granulo (auto) 0.0 % SARS-CoV-2 (PCR) Negative SARS-CoV-2 (Negative) Influenza Type A (PCR) Negative PCR FLU A (Negative) Influenza Type B (PCR) POSITIVE PCR FLU B A (Negative) RSV (PCR) Negative PCR RSV (Negative) Imaging Data Chest x-ray: Attestation: I have reviewed the pertinent imaging results. My impression: I do not appreciate any consolidation or pneumonia on my preliminary review. Radiologist's impression: Patient: EMMANUELLE DUMONT Facility:?[facility] Patient ID:?[id number] Site Patient ID:?[id number]. Site :?1990 Study:?XRay-Chest portable one view-10/24/2024 9:45:36 AM Ordering Physician:?Myke Black Final Report: INDICATION: Cough, fever TECHNIQUE: Chest 1 views. COMPARISON: Chest radiograph 11/15/2022. FINDINGS: Cardiovasculature and mediastinum: Heart size is normal. Unremarkable mediastinum. Lungs and pleural spaces: Lungs are clear. No sign of infiltrate or mass. No sign of pleural effusion. No pneumothorax. Bones and soft tissues: No significant findings. IMPRESSION: No acute or significant findings. Dictated by Dee May MD @ 10/24/2024 9:50:30 AM (Electronic Signature) Discharge Plan Discharge Clinical Impression: Influenza B Patient Disposition: Home, Self-Care Condition: Stable Instructions: Influenza (ED) Additional Instructions: alternate Tylenol and ibuprofen as needed for symptom control. Will provide a prescription for Robitussin with codeine to help with cough symptoms. Cannot operate machinery or drive while using this. Drink plenty of fluids, appetite will improve as you feel better. If you feel you are worsening, develops concerning symptoms or are not improving over the next week, do recommend re-evaluation. You do need to quarantine from public while you are ill. Activity Level: Activity as Tolerated Prescriptions: New codeine-guaifenesin [Guaifenesin AC] 10-100 mg/5 mL liquid 5 ml PO Q6H PRNQty: 120 0RF Follow Up/Referrals: Bhavani Hamlin DO [Primary Care Provider] - Stand Alone Forms: [employer] Info Instructions
[2024-10-24] MEDS: IBUPROFEN 200 MG TABLET 600 MG PO (09:20)
[2024-10-24 09:29] LABS: PCR FLU A Negative PCR FLU A (Negative); PCR FLU B POSITIVE PCR FLU B (Negative); PCR RSV Negative PCR RSV (Negative); SARS PCR* Negative SARS-CoV-2 (Negative)
[2024-10-24 09:38] LABS: Eosinophils Percent Auto 0.7 % (0.0-7.0); Hematocrit 42.2 % (33.0-51.0); Hemoglobin* 14.3 gm/dL (12.0-16.0); Lymphocytes Percent Auto 32.6 % (20-44); Mean Corpuscular HGB Conc 34 gm/dL (32-36); Mean Corpuscular Hemoglobin 32 pg (26-34); Mean Corpuscular Volume 94 fL (80-100); Monocytes Percent Auto 16.3 % (0.0-11.0); Neutrophils Percent Auto 50.4 % (42.0-72.0); Platelet Count* 173 K/uL (140-440); Red Blood Count 4.51 m/uL (4.00-5.20); White Blood Count* 2.82 K/uL (4.50-11.00)
[2024-10-24 09:39] LABS: Slide Review Reflex No
--- OUTSIDE RECORDS SUMMARY | 2024-10-24 09:44 | XMS_ITS | Clinical Summary ---
Author Organization [facility] Address [address] [place] [address] Care Team Providers Care Purchasing Expeditor Name Role Phone Unavailable Primary Care Provider Unavailabl e Source Comments You are receiving this document as you are listed as the primary care provider,follow-up provider, or the patient has been referred to you for consultation.This is in compliance with the Medicare and[facility] EHR Incentive Program,which states Providers who transition their patient to another setting of careor provider of care or refers their patient to another provider of care shouldprovide summary care record for each transition of care or referral. [employer] Allergies No known active allergies Medications * [...]
== END 2024-10-24 10:01 | disposition home or self-care (01) ==
PROVIDERS: Emergency Provider Family Medicine; PCP Family Medicine
DX: J10.1 Influenza due to other identified influenza virus with other respiratory manifestations (principal)
CPT/HCPCS: 36415; 71045; 85025; 87631; 99283; 99284; A9270

== ENCOUNTER 2025-07-02 18:43 | Outpatient (CLI) | payer BC, SELFPAY | END 2025-07-02 18:44 | disposition home or self-care (01) | LOC: AMB 07-05 19:30 | PROVIDERS: PCP Family Medicine; Visit Provider Emergency Medicine | DX: R42 Dizziness and giddiness (principal); R20.2 Paresthesia of skin | CPT/HCPCS: A0425; A0427 ==

== ENCOUNTER 2025-07-02 19:03 | Emergency (ER) | payer BC, SELFPAY ==
--- OUTSIDE RECORDS SUMMARY | 2025-06-08 11:20 | XMS_ITS | Encounter Summary ---
[facility] Address [address] [address] Care Team Providers Care Md Pediatric Allergist Name Role Phone Unavailable Primary Care Provider Unavailabl e Encounter Details Date Type Department Care Team (Latest Contact Info) Description 06/08/2025 12:20 PM CDT Immunization Nursing at [facility] [address] [address] Encounter for administration of vaccine (Primary Dx) Social History Tobacco Use Types Packs/Day Years Used Date Smoking Tobacco: Never Assessed Comments No Sex and Gender Information Value Date Recorded Sex Assigned at Not on file Legal Sex Female 12:41 PM CDT Gender Identity Not on file Sexual Orientation Not on file documented as of this encounter Plan of Treatment Not on file documented as of this encounter Visit Diagnoses Diagnosis Encounter for administration of vaccine- Primary documented in this encounter
[2025-07-02] VITALS (32 sets, daily range): BP systolic 105–129; BP diastolic 63–90; PULSE 52–77; RESP 14–24; TEMP 36.6; O2SAT 92–100; BMI 24.7
--- NOTE | 2025-07-02 19:05 | CRLHL7_ITS ---
For Patients: As a result of the Century Cures Act, medical imaging exams and procedure reports are released immediately into your electronic medical record. You may view this report before your referring provider. If you have questions, please contact your health care provider. Indication: Dizzy. Difficulty speaking. Technique: Noncontrast CT images of the brain. Comparison: None. Findings: Beam hardening artifact secondary to a right external ear piercing limits evaluation. The ventricles and sulci are within normal limits for patient age. No mass effect or midline shift. Moreno-white differentiation is maintained. No acute intracranial hemorrhage or pathologic extra-axial fluid collection. Globes are symmetric. Calvarium is intact. The visualized paranasal sinuses and mastoid air cells are clear. Impression: No acute intracranial hemorrhage or mass effect. Please note that all CT scans at this facility use dose modulation, iterative reconstruction, and/or weight-based dosing when appropriate to reduce radiation dose to as low as reasonably achievable. Dictated by Arnaldo Pike MD @ 07/02/2025 7:24:49 PM (Electronically Signed)
--- OUTSIDE RECORDS SUMMARY | 2025-07-02 19:05 | XMS_ITS | Clinical Summary ---
[facility] Address [address] [place] [address] Care Team Providers Care Bartacker Name Role Phone Unavailable Primary Care Provider Unavailabl e Source Comments You are receiving this document as you are listed as the primary care provider,follow-up provider, or the patient has been referred to you for consultation.This is in compliance with the Medicare and[facility] EHR Incentive Program,which states Providers who transition their patient to another setting of careor provider of care or refers their patient to another provider of care shouldprovide summary care record for each transition of care or referral. [facility] Allergies No known active allergies Medications escitalopram oxalate (LEXAPRO) 20 MG tablet Take 20 mg by mouth. 03/19/2021 Active gabapentin (NEURONTIN) 300 MG capsule Take 300 mg by mouth. 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 CARSON (generalized anxiety disorder) 06/17/2021 Obsessive-compulsive disorder 06/17/2021 Vitamin D insufficiency 06/17/2021 Encounters Date Type Department Care Team Description 06/08/2025 12:20 PM CDT Immunization Nursing at [facility] [address] [address] Encounter for administration of vaccine (Primary Dx) from Last 3 Months Immunizations Immunization Administration Dates Next Due Influenza ccIIV3 6 months+ (Flucelvax) Pfizer COVID-19 12+ (Comirnaty) 06/08/2025 Social History Tobacco Use Types Packs/Day Years [...] Hep C Screening (Preventive Services) 1990 HepA Vaccine (2 of 2 - 2-dose series) 09/19/2006 03/19/2006 Adult Preventive Visit 2010 HepB Vaccine (1) 2011 HPV Vaccine (1 - 3-dose SCDM series) 2019 DTaP/Tdap/Td Vaccine (4 - Tdap) 05/07/2025 05/07/2015, 05/13/2013, 11/20/2003 Zoster/Shingles Vaccine (1 of 2) 2042 HIV Screening (Preventive Services) Completed 12/02/2014 Pneumococcal Vaccine Aged Out 09/09/2023 No long er eligible based on patient's age to complete this topic COVID-19 Vaccine Completed 06/08/2025, 06/2024, 09/09/2023, Additional history exists Influenza Vaccine Completed 06/08/2025, , 09/09/2023, Additional history exists Hib Vaccine Aged Out No longer eligi ble based on patient's age to complete this topic IPV (Polio) Vaccine Aged Out No longe r eligible based on patient's age to complete this topic MCV4 Vaccine Aged Out No longer eligi ble based on patient's age to complete this topic Meningococcal B Vaccine Aged Out No l onger eligible based on patient's age to complete this topic Insurance [facility] [place] [id number]
--- OUTSIDE RECORDS SUMMARY | 2025-07-02 19:05 | XMS_ITS | Clinical Summary ---
Author Organization [facility] Address [address] [place] [id number] Care Team Providers Care Community Health Nurse Name Role Phone Bhavani Hamlin Primary Care Provider [phone] Allergies No known active allergies Medications cholecalciferol (Vitamin D) 1,000 unit capsuleIndicati ons:Vitamin D deficiency Take 1 Capsule (1,000 units) by mouth once daily. 90 Capsule 3 09/10/2023 Active Active Problems Problem Noted Date Diagnosed Date Pap smear for cervical cancer screening 08/28/19 23 Overview (08/28/2022): 06/2022: NIL/HPV neg. Plan: Pap and HPV in 5 years. Anorexia nervosa, restricting type 07/23/2022 History of premature rupture of membrane s (PPROM) 04/08/2018 [facility] Encounter for preconception consultation Overview (04/05/2018): [facility] PRECONCEPTION CONSULTATION ON 03/25/18 REASON FOR CONSULT: Pre preg consult, prior hx PPROM at 22 and 27 weeks [facility] records are scanned in [facility] APPOINTMENT: Consultation PRIMARY DIAGNOSIS: 27 y.o. PTD - 2013 22w loss, PPROM, abruption, neg quad, no autopsy PTD - 2016 PPROM, - living chorioamnionitis stage 2 on path report Hx self cutting at 17 yo Hx orthostatic hypotension Hx of seizure - one time Vertigo/Vestibular Migraines Hx MRSA - treated REFERRING PHYSICIAN/PHONE/LAST UPDATE: Bhavani Hamlin DO Knapp Mangum [phone] Primary MD approves scheduling of recommended ultrasounds/testing: Yes SPECIALISTS/CONSULTS: [facility] Include: Specialty MD Clinic Name Phone# [place] GENETICS: PROCEDURES: PERTINENT LABS: Blood type A positive PERTINENT MEDS: Gabapentin - dizziness BCP MD PLAN OF CARE: Evaluation regarding contraception options 03/19 MRSA (methicillin resistant staph aureus) cultur e positive 08/03/2015 Overview (08/03/2015): +MRSA mastitis 07/2015 Prior with demise 12/22/2014 History of placenta abruption 12/22/2014 Deliberate self-cutting 04/17/2009 Resolved Problems Problem Noted Date Diagnosed Date Resolved Date Malpositioned intrauterine device (IUD) 04/02/2017 04/02/2017 IUD (intrauterine device) in place 03/26/2017 04/02/2017 Overview (04/02/2017): Kyleena 03/26/2017 - malpositioned - removed 04/02/2017 , subsequent 02/15/20152014 Overview (04/11/2015): Perinatology consult at 15 weeks due to [...] Supervision of normal first 01/13/2014 04/29/2014 Immunizations Immunization Administration Dates Next Due AMB Influenza, IIV4 PF (=>6 mos Flulaval,Fluzone Fluarix)(Flu Clinic Only) 05/27/2019 COVID-19 VACCINE SPIKEVAX (M ODERNA 50MCG/0.5ML) 12YO+ PFS 08/03/2024,09/09/2023 Hepatitis A (Peds) 03/19/2006 Hepatitis B (Peds) 04/10/2004,12/29/2003, 004 INFLUENZA, IIV3 PF (AGE >= 6 MO) 08/03/2024 Influenza Virus, Unspecified 06/11/2016 Influenza, IIV3 (Age 6-35 mos) 06/21/2015 Influenza, IIV4 09/09/2023,,07/01/2021,2019,05/25/2018,05/24/2015 MMR 11/20/2003 Pneumococcal Conj 20-valent (Prevnar 20) 09/09/2023 Td (Age >=7 Years) 11/20/2003 Tdap 05/07/2015,05/13/2013,11/20/2003 Family History Medical History Relation Name Comments No Known Problems Brother 1 Good Health Brother 2 special needs/ learning delay (hemiplegic migraines and other medical issues) Migraines Brother [...] Types Packs/Day Years Used Date Smoking Tobacco: Some Days Cigarettes 0.4 15.1 Started: 2004; Last attempted to quit: 09/24/2023 Passive Smoke Exposure: Past Smokeless Tobacco: Never Tobacco Cessation:Ready to Q uit: Not Asked; Counseling Given: Not Answered Alcohol Use Standard Drinks/Week Comments Yes 4 (1 standard drink = 0.6 oz pur e alcohol) PHQ-2 Answer Date Recorded PHQ-2 TOTAL SCORE 2 09/09/2023 Social Connections Answer Date Recorded Do you often feel lonely or isolated from those around you? 0 09/14/2024 Alcohol Use Answer Date Recorded How often do you have a drink containing alcohol ? 2 02/08/2024 How many drinks containing a lcohol do you have on a typical day when you are drinking? 0 02/08/2024 How often do you have five or more drinks on one occasion? 0 02/08/2024 Financial Resource Strain Answer Date R ecorded Difficulty of Paying Living Expenses 3 09/14/2024 Difficulty of Paying Living Expenses Not on file 09/14/2024 Food Insecurity Answer Date Recorded Do you worry your food will run out before you are able to buy more? 1 09/14/2024 Transportation Needs Answer Date Record ed Does lack of transportation keep you from medica l appointments? 1 09/14/2024 Does lack of transportation keep you from work, meetings or getting things that you need? 1 09/14/2024 Housing Stability Answer Date Recorded What is your housing situation today? 1 09/14/2024 Utilities Answer Date Recorded Do you have trouble paying f or utilities (for example, heat, electricity, water, phone)? 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 Please review and update details. 2014 27w 2d 1.11 kg (2 lb 7 oz) M Vag Y Livin g Last Filed Vital Signs Vital Sign Reading Time Taken Comments Blood Pressure 122/79 09/14/2024 7:57 AM [facility] Pulse 74 09/14/2024 7:57 AM [facility] Temperature 37.2 C (99 F) 09/28/2020 1:26 PM [facility] Respiratory Rate 16 10/04/2019 10:19 AM [facility] Oxygen Saturation 98% 09/14/2024 7:57 AM [facility] Inhaled Oxygen Concentration - - Weight 55.3 kg (122 lb) 09/09/2023 10:09 AM [facility] Height 157.5 cm (5' 2) 09/09/2023 10:09 AM [facility] Body Mass Index 22.31 09/09/2023 10:09 AM [facility] Plan of Treatment Health Maintenance Due Date Last Done Comments Depression screening for age 12+ 2004 HPV series for age 9-45 (1 - 3-dose SCDM series) 2019 BMI (ht and wt on same day) for age 18+ 09/09/2024 09/09/2023, 06/24/2022, 01/01/2021, Additional history exists Influenza Vaccine (#1) 2025 , 09/09/2023, 07/09/2022, Additional history exists Tetanus booster 05/07/2025 05/07/2015, 04/25, 11/20/2003, Additional history exists Pap test for age 21-65 07/23/2027 , 07/23/2022, 02/05/2017, Additional history exists RSV vaccine for adults or (1 - 1-dose 75+ series) 2067 Hepatitis B series for 19+ Completed 04/10, 12/29/2003, 11/20/2003 HIV for age 15-65 Completed 12/02/2014, 01/13/2014 Hepatitis C screening for ag e 18-79 Completed 07/23/2022, 12/02/2014 Pneumococcal series for age 6-49 Completed 09/09/19 24 Procedures Procedure Name Priority Date/Time Associated Diagnosis Comments ANTI HCV Routine 07/23/2022 10:05 AM [facility] Screen for STD (sexually transmitted disease) HPV HIGH RISK Routine 07/23/2022 9:27 AM [facility] Cervical cancer screening ANTI HIV 1/2 Routine 12/02/2014 11:36 AM CDT (HC) from Last 3 Months or Most Recently Relevant to Health Maintenance Results * ANTI HCV (07/23/2022 10:05 AM [facility]) HEPATITIS C ANTIBODY Non-React barb Non-React barb 07/25/2022 2:10 AM [facility] Comment:Antibodies to HCV no t detected; does not exclude the possibility of exposure to HCV. Blood BLOOD SPECIMEN / Unknown Venipuncture / Unknown 07/23/2022 10:05 AM [facility] 07/23/2022 10:06 AM [facility] Theresa Hamlin DO SEND OUTS Final Resu lt [facility] [address] [place] [address], * HPV HIGH RISK (07/23/2022 9:27 AM [facility]) TYPE 16 Negative Negative 07/25/2022 3:56 PM [facility] TYPE 18 Negative Negative 07/25/2022 3:56 PM [facility] OTHER HIGH RISK TYPES Negative Negative 07/25/2022 3:56 PM [facility] Other (Cervical) Non-Blood / Unknown 07/23/2022 9:27 AM [facility] 07/24/2022 1:35 PM [facility] Narrative [facility] - 07/25/2022 3:56 PM [facility] HPV types 16, 18, 31, 33, 35, 39, 45, 51, 52, 56, 58, 59, 66 and 68 DNA were undetectable or below the pre-set threshold. Methodology: Jamila Scar 4800 HPV Test Bhavani Theresa aHmlin DO MICROBIOLOGY Final Resu lt [facility] [address] [place] [address], * ANTI HIV 1/2 (12/02/2014 11:36 AM CDT) HIV-1/HIV-2 ANTIBODY Non-Reacti ve Non-Reacti ve 12/02/2014 4:40 PM CDT [facility] Blood specimen (specimen) BLOOD SPECIMEN / Unknown Venipuncture / Unknown 12/02/2014 11:36 AM CDT 12/02/2014 11:36 AM CDT Narrative [facility] - 12/02/2014 4:40 PM CDT HIV-1 p24 and HIV-1/HIV-2 Ab not detected us Jimena TERRAZAS SEND OUTS Final R esult [facility] [address] [place] [address], [place] from Last 3 Months or Most Recently Relevant to Health Maintenance Insurance [facility] MEDICAID WORKERS COMP DEVEN FOSTER [id number] Advance Directives * Full Code (Latest Code Status on File) Date Activated Date Inactivated Comments 04/13/2015 7:13 AM 04/13/2015 10:59 AM * Full Code Date Activated Date Inactivated Comments 04/29/2014 2:47 PM 04/30/2014 2:01 PM * Full Code Date Activated Date Inactivated Comments 04/28/2014 6:16 PM 04/29/2014 10:47 AM * Full Code Date Activated Date Inactivated Comments 04/28/2014 2:18 PM 04/28/2014 5:11 PM * Full Code Date Activated Date Inactivated Comments 04/28/2014 2:10 PM 04/28/2014 2:18 PM Care Teams Community Health Nurse Relationship Specialty Start Date End Date Bhavani Hamlin DO [address] [place] [id number] PCP - General Family Practice 12/02/14
--- NOTE | 2025-07-02 19:07 | CRLHL7_ITS ---
For Patients: As a result of the Century Cures Act, medical imaging exams and procedure reports are released immediately into your electronic medical record. You may view this report before your referring provider. If you have questions, please contact your health care provider. INDICATION: Vertigo, ataxia. TECHNIQUE: CTA head using intravenous contrast with bolus tracking, 3D angiographic rendering using maximum intensity projection (MIP) and images permanently archived. CTA neck using intravenous contrast with bolus tracking, 3D angiographic rendering using maximum intensity projection (MIP) and images permanently archived. FINDINGS: CTA head: There is normal opacification of the intracranial vasculature. There is no large vessel occlusion or significant intracranial stenosis. No aneurysm is identified. CTA neck: There is no significant carotid artery stenosis or dissection. There is no significant vertebral artery stenosis or dissection. IMPRESSION: Unremarkable head CTA. Unremarkable neck CTA. Please note that all CT scans at this facility use dose modulation, iterative reconstruction, and/or weight-based dosing when appropriate to reduce radiation dose to as low as reasonably achievable. Dictated by Landon Thompson MD @ 07/02/2025 9:56:01 PM (Electronically Signed)
--- NOTE | 2025-07-02 19:07 | ED.GENADULT ---
HPI - General Adult General Date Seen: 07/02/25 Chief complaint: Neuro Symptoms/Altered Deficit Stated complaint: CVA Time Seen by Provider: 07/02/25 19:05 History of Present Illness HPI narrative: 35-year-old female is brought to the ER today by EMS as a code stroke History from EMS is that the patient was driving her car when she developed symptoms of dizziness, trouble walking, ataxia, generalized weakness, tingling in both of her hands. EMS reports the patient has a history of vestibular migraines as suspects that this may be 1 of those but because of her neuro symptoms they activated a code stroke. History from the patient is initially fairly disjointed because she is fairly anxious as I encounter her in the CT scanning and arrival by EMS. Further history from the patient after we were able to get her through the CT scanner and is obtained in ER stable to is as follows She has a has a history of vestibular migraines dating back quite a few years. She had apparently gone through a fairly extensive workup through her doctors immediately on a system and through a neurologist. She says she had ?all the tests,? and had no serious causes of her symptoms such as strokes, blocked arteries, tumors. She was referred to a [facility] in [place] and saw them about 7 years ago. They did a lot of testing that sounds like vestibular testing and may be a tilt-table test. She was diagnosed vestibular migraines. It sounds like these were fairly well managed on gabapentin for several years but then the gabapentin stop working. After that she had tried several other medications prescribed through her PCP. She had a stop taking them all due to undesirable side effects. She has been off all of her medications for about a year and half for so. She says she typically gets a vestibular migraine every 6-12 months. Her most recent episode happened in April this year. When that happened she just stayed in bed for about a day and then symptoms got better. Her symptoms then I were as follows. She does care for her special needs brother sometimes and he was with her last night. They state a bit later than normal so they slipped and this morning. She felt fine this morning. She did have an episode this afternoon where she had a very brief episode of sharp pain in the right temporal region of her head that this lasted a 2nd or 2 and then went away. Since then she has been normal. She was able to take her son to his hockey practice this evening. While at the hockey practice she began to feel unwell. Her initial symptoms were just that she felt hot and flushed all over and then cold. She also felt some GI distress like she might either vomit or have diarrhea. She went to the bathroom but neither vomited nor had diarrhea. She felt hot and needed to go outside. She did want to vomit inside the hockey rink. Since her brother is her son's hockey motorcoach operator, she knew that she could leave him there and that her brother would bring him home. She did decided to drive herself home. On the way home she started feel worse with generalized weakness, unsteadiness. Not really spinning vertigo. Not diplopia. No headache. She became nauseous. She actually missed her turn but she would normally take to get on the street to get to her own house. After missing her turn she pulled over to the side of the road. She was feeling so miserable that she thought she might get into an accident. She got out of her car and laid down on the ground next to her car for a while because she was feeling hot. She called her mother who advised her to call 911 if she was that sick. She says she tried to get up off the ground and get back into her car couple times. She was able to do a but she was unsteady. When paramedics arrived they did her their initial assessment, started IV and they brought her here to the ER. Related Data Home Medications ?Medication ?Instructions ?Recorded ?Confirmed No Known Home Medications 11/28/24 04/21/25 Allergies Allergy/AdvReac Type Severity Reaction Status Date / Time No Known Drug Allergies Allergy Verified 04/21/25 11:56 [facility] Medical History Rupture of tendon of thumb Leg pain ?M79.606 - Pain in leg, unspecified (ICD-10) Laceration Influenza due to influenza virus, type B ?J10.1 - Influenza due to other identified influenza virus with other respiratory manifestations (ICD-10) Encounter for pre-operative examination ?Z01.818 - Encounter for other preprocedural examination (ICD-10) History of premature rupture of membranes (PPROM) ?Z87.59 - Personal history of other complications of , childbirth and the puerperium (ICD-10) MRSA (methicillin resistant Staphylococcus aureus) ?A49.02 - Methicillin resistant Staphylococcus aureus infection, unspecified site (ICD-10) History of placenta abruption ?Z87.59 - Personal history of other complications of , childbirth and the puerperium (ICD-10) Prior with demise ?O09.299 - Supervision of with other poor reproductive or obstetric history, unspecified trimester (ICD-10) Vestibular migraine ?G43.809 - Other migraine, not intractable, without status migrainosus (ICD-10) Orthostatic hypotension ?I95.1 - Orthostatic hypotension (ICD-10) Anxiety ?F41.9 - Anxiety disorder, unspecified (ICD-10) Surgical History Status post surgical removal of both fallopian tubes (~2018) ?Z90.79 - Acquired absence of other genital organ(s) (ICD-10) History of thumb surgery (05/02/16) ?Z98.890 - Other specified postprocedural states (ICD-10) Family History Brother Seizure disorder Social History Narrative: exercises regularly- runs 3x/week nonsmoker rarely consumes alcohol single, milking tech, 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 Speaking clearly. No slurred speech. Phonation normal. No stridor. B- breathing easily. Lung sounds clear and equal. Oxygen saturation normal on room air C- no active bleeding. Blood pressure stable. Symmetric pulses and cap refill in 4 extremities. D- alert and oriented x3. GCS 15. She says she is too dizzy to lay flat for the CT scanner to get CTA. When sitting up she sometimes feels unsteady and almost leans over backwards. Secondary survey/more thorough exam performed in ER room stable to Constitutional: Appears well-developed and well-nourished. Alert. Conversant. HENT: Head: Atraumatic. Nose: Nose normal. Mouth/Throat: Oral mucosa is clear and moist. no trismus. Pharynx normal. Tonsils symmetric. No tonsillar enlargement, erythema, or exudate. Eyes: Conjunctivae normal. EOM normal. Pupils equal, round, and reactive to light. No scleral icterus. Neck: Normal range of motion. Neck supple. No tracheal deviation present. No JVD. I do not hear any carotid bruit Cardiovascular: Normal rate, regular rhythm. No gallop. No friction rub. No murmur heard. Symmetric radial artery pulses Pulmonary/Chest: Effort normal. No stridor. No respiratory distress. No wheezes. No rales. No rhonchi . No tenderness. Abdominal: Soft. Bowel sounds normal. No distension. No mass. No tenderness. No rebound. No guarding. Musculoskeletal: RUE: Normal range of motion. No tenderness. No deformity LUE: Normal range of motion. No tenderness. No deformity RLE: Normal range of motion. No edema. No tenderness. No deformity LLE: Normal range of motion. No edema. No tenderness. No deformity Mental status normal. Attention normal. Alert and oriented x3. GCS 15. Memory normal. Speech fluent. Cognition normal but she has a somewhat anxious, disjointed historian. Very pleasant and she is doing her best to try to describe symptoms.. Cranial Nerves intact II-XII except I did not formally test gag or visual acuity. EOMI. Palate elevates symmetrically and tongue protrudes in the midline. Strength: 5/5 trapezius on the right and left 5/5 deltoid on the right and left 5/5 biceps on the right and left 5/5 triceps on the right and left 5/5 crew attendant on the right and left 5/5 thumb opposition on the right and left 5/5 finger abduction on the right and left When I ask her to do range of motion her legs she says both her legs feel really weak and she can barely lift either leg off the bed. When I hold her right leg up she has oval told that for about 2 or 3 seconds port falls to the bed. Same thing with her left leg. Of note, I do not feel any downward force on her contralateral leg when she is trying to lift each leg. She is able to bend her knees. Patellar reflexes are 2/4 bilaterally. Sensation intact to light touch in both upper extremities (C4-T1) Sensation intact to light touch in Both lower extremities (L4-S1). Finger to nose are normal. She has leg weakness and says she is not able to move her control either 1 of her legs very well. Skin: Skin is warm and dry. No rash noted. No pallor. Normal capillary refill. Psychiatric: Seems anxious. Very polite. Const: Vital Signs, click to edit/add: Vital Signs - 24 hr 07/02/25 19:20 07/02/25 19:20 07/02/25 19:22 Temperature 98 F Pulse Rate 64 Pulse Rate [Pulse Oximeter] 58 L Respiratory Rate 20 16 18 Blood Pressure 129/90 H Blood Pressure [Le ft Upper Arm] 129/90 H Pulse Oximetry 99 [facility] 07/02/25 19:30 07/02/25 19:32 07/02/25 19:33 Temperature Pulse Rate 64 55 L 52 L Pulse Rate [Pulse Oximeter] Respiratory Rate 16 20 18 Blood Pressure 115/79 Blood Pressure [Le ft Upper Arm] Pulse Oximetry 99 99 99 [facility] 07/02/25 19:45 07/02/25 19:47 07/02/25 19:48 Temperature Pulse Rate 71 72 69 Pulse Rate [Pulse Oximeter] Respiratory Rate 20 14 23 Blood Pressure 123/85 Blood Pressure [Le ft Upper Arm] Pulse Oximetry 99 99 99 [facility] 07/02/25 20:00 07/02/25 20:02 07/02/25 20:03 Temperature Pulse Rate 69 63 69 Pulse Rate [Pulse Oximeter] Respiratory Rate 17 18 19 Blood Pressure 106/77 Blood Pressure [Le ft Upper Arm] Pulse Oximetry 98 98 97 [facility] 07/02/25 20:15 07/02/25 20:17 07/02/25 20:34 Temperature Pulse Rate 64 69 73 Pulse Rate [Pulse Oximeter] Respiratory Rate 17 20 20 Blood Pressure 110/78 Blood Pressure [Le ft Upper Arm] Pulse Oximetry 98 98 92 [facility] 07/02/25 20:35 07/02/25 20:36 07/02/25 20:45 Temperature Pulse Rate 63 71 73 Pulse Rate [Pulse Oximeter] Respiratory Rate 20 15 19 Blood Pressure 117/73 Blood Pressure [Le ft Upper Arm] Pulse Oximetry 99 98 98 Oxygen Delivery Nc thod 07/02/25 20:47 07/02/25 21:00 07/02/25 21:02 Temperature Pulse Rate 65 73 69 Pulse Rate [Pulse Oximeter] Respiratory Rate 17 17 17 Blood Pressure 115/64 109/63 Blood Pressure [Le ft Upper Arm] Pulse Oximetry 99 99 99 Oxygen Delivery Nc thod 07/02/25 21:15 07/02/25 21:17 Temperature Pulse Rate 67 77 Pulse Rate [Pulse Oximeter] Respiratory Rate 17 19 Blood Pressure 107/65 Blood Pressure [Le ft Upper Arm] Pulse Oximetry 98 97 Oxygen Delivery Nc thod Course Course ED Course: Recheck-this feels slightly better after fluids and meds. Still feeling a little bit dizzy unsteady. I repeated neurologic exam. Still no nystagmus, diplopia, cranial nerve deficit, focal weakness in her arms or legs. I do note that the strength in her lower extremities which had been quite weak on my 1st exam (barely able to lift either foot off the bed) he has improved and now she is able to hold each foot against gravity for more than 5 seconds. Recheck-CT angiogram results are back and normal. Recheck-discussed again with Stroke Neurology, Dr. Alcantar. At this point without any clear focal symptoms other than dizziness and trouble walking, this does not appear to be in acute stroke. Especially given history of ?vestibular migraines? dating back for about 7 or 8 years with previous workup and similar episodes like this, at this point we feel that the risk such as bleeding of thrombolytics would far outweigh any potential benefit. This seems unlikely to represent acute ischemic infarct. Laboratory workup shows borderline hypokalemia with potassium of 3.5 but no other definite abnormality that would explain dizziness and weakness. At this point we suspect this is a vestibular migraine. Stroke neurology would recommend that would ever sort of migraine treatment would be helpful here in the ER might help abort symptoms and then when the patient gets discharged she should have close outpatient follow-up with PCP as well as with Neurology. She likely would benefit some of the newer migraine medications. Recheck- feeling marginally better. will give another L of crystaloid. Reevaluation(s) Reevaluation #1: Recheck-feeling better after 2 L fluids. Ambulatory in the hallway. Walking under own power without support. Feels slightly unsteady but no ataxia. No focal deficits. She has made urine in for feels better. Recheck again. Discussed with the patient and her family. She is comfortable discharging home. She says with her symptoms like this as she would normally just go to bed and rest. We discussed return precautions and need for follow-up. Patient verbalizes understanding and agreement with the plan. Vital Signs Vital signs: Initial Vital Signs Temperature 98 F 07/02/25 19:20 Temperature Source Temporal Artery Scan 07/02/25 19:20 Pulse Rate 64 07/02/25 19:20 Respiratory Rate 20 07/02/25 19:20 Blood Pressure 129/90 H 07/02/25 19:20 Blood Pressure Mean 103 07/02/25 19:20 Blood Pressure Position Sitting 07/02/25 19:20 Pulse Oximetry 99 07/02/25 19:20 Oxygen Delivery Method Room Air 07/02/25 19:20 Vital Signs Temperature 98 F 07/02/25 19:20 Pulse Rate 64 07/02/25 19:20 Respiratory Rate 20 07/02/25 19:20 Blood Pressure 129/90 H 07/02/25 19:20 Pulse Oximetry 99 07/02/25 19:20 Oxygen Delivery Method Room Air 07/02/25 19:20 Temperature 98 F 07/02/25 19:20 Pulse Rate 77 07/02/25 21:17 Respiratory Rate 19 07/02/25 21:17 Blood Pressure 107/65 07/02/25 21:17 Pulse Oximetry 97 07/02/25 21:17 Oxygen Delivery Method Room Air 07/02/25 19:20 Medications Administered Medications: Generic Name Dose Route Start Last Admin Trade Name Freq PRN Reason Stop Dose Admin Sodium Chloride 1,000 mls @ 1,000 mls/hr 07/02/25 21:45 07/02/25 22:24 0.9 % Sodium Chloride 1000 Ml IV 07/02/25 22:44 Infused .Q1H BAKARI Infusion Discontinued Medications Generic Name Dose Route Start Last Admin Trade Name Freq PRN Reason Stop Dose Admin Diphenhydramine HCl 12.5 mg 07/02/25 19:55 07/02/25 20:02 Diphenhydramine 50 Mg/Ml Inj IVP 07/02/25 19:56 12.5 mg ONCE ONE Administration Sodium Chloride 1,000 mls @ 1,000 mls/hr 07/02/25 19:30 07/02/25 21:17 0.9 % Sodium Chloride 1000 Ml IV 07/02/25 20:29 Infused .Q1H BAKARI Infusion Metoclopramide HCl 10 mg/ 102 mls @ 306 mls/hr 07/02/25 19:55 07/02/25 20:32 Sodium Chloride IVPB 07/02/25 19:56 Infused ONCE ONE Infusion Lorazepam 1 mg 07/02/25 19:21 07/02/25 19:33 Lorazepam 2 Mg/Ml Inj IVP 07/02/25 19:22 1 mg ONCE ONE Administration Ondansetron HCl 4 mg 07/02/25 19:20 07/02/25 19:33 Ondansetron 2 Mg/Ml Inj IVP 07/02/25 19:21 4 mg ONCE ONE Administration Medical Decision Making [facility] Narrative Medical decision making narrative: 35-year-old female brought to the ER today by EMS with acute onset of unsteadiness, difficulty walking, generalized weakness She was brought in as a ?code stroke? by EMS but has history of multiple previous episodes similar to this that and has already been diagnosed with this tubular migraines. As part of her code stroke workup she did have an emergent noncontrast head CT which is normal and CT angiograms which are normal. After I was able to get a more thorough history and physical, symptoms do appear to be more likely to be related to his tubular migraine than true acute ischemic stroke. She has not have any focal deficits. At this point I think the likelihood for posterior fussy ischemia is very low. In discussion with Stroke Neurology, Dr. Alcantar, from [facility], we agree that the risk associated with thrombolytics would outweigh the benefit. She was treated with supportive measures for vestibular migraine including IV fluids, Reglan for migraine, Ativan for anxiety. With this she had substantial improvement in her symptoms. Other laboratory workup is reassuring. Hemoglobin and white count are normal. She is not febrile. No evidence for sepsis or infection. She has no recent head trauma or other signs of concussion or TBI. Electrolytes are normal save for mild borderline hypo knee tree Sivan and hypokalemia which are likely not low enough to cause the symptoms. Blood sugar and kidney function are normal. Screening EKG shows normal sinus rhythm and no ischemia. Script troponin is undetectable. Alcohol level is undetectable. She is not . She is not having any abdominal tenderness on exam to suggest internal bleeding. No flank pain to suggest kidney stone, kidney infection, retroperitoneal hemorrhage. No chest pain to suggest PE or dissection. At this point I do not think the patient needs advanced imaging of her torso or abdomen. Overall she is feeling better after treatment here in the ER is comfortable discharging home. Would recommend close outpatient follow-up with her PCP to arrange a new neurology consult because of her recurrent history the migraines. Lab Data Labs: Lab Results 07/02/25 Range/Units 19:20 WBC 9.35 (4.50-11.00) K/uL RBC 4.54 (4.00-5.20) m/uL Hgb 14.4 (12.0-16.0) gm/dL Hct 43.0 (33.0-51.0) % MCV 95 (80-100) fL MCH 32 (26-34) pg MCHC 34 (32-36) gm/dL RDW Coeff of Dean 11.7 (11.5-15.5) % Plt Count 267 (140-440) K/uL Neut % (Auto) 56.9 (42.0-72.0) % Lymph % (Auto) 29.2 (20-44) % Carter % (Auto) 8.4 (0.0-11.0) % Eos % (Auto) 5.1 (0.0-7.0) % Baso % (Auto) 0.2 (0.0-3.0) % Neut # (Auto) 5.31 (1.7-7.0) K/uL Lymph # (Auto) 2.73 (0.90-2.90) K/uL Carter # (Auto) 0.80 (0.00-0.90) K/UL Eos # (Auto) 0.48 (0.00-0.50) K/uL Baso # (Auto) 0.02 (0.00-0.30) K/uL Abs Immat Gran (auto) 0.02 (0.00-0.30) K/uL Imm/Tot Granulo (auto) 0.2 % INR 0.93 (0.91-1.10) Sodium 134 L (135-149) mmol/L Potassium 3.5 L (3.6-5.1) mmol/L Chloride 98 (96-114) mmol/L Carbon Dioxide 25 (20-32) mmol/L Anion Gap 11 (7-15) mEq/L BUN 15 (5-24) mg/dL Creatinine 0.8 (0.5-1.5) mg/dL Estimated Creat Clear 79.11 Estimated GFR 100 ml/min Glucose 122 H (60-115) mg/dL Calcium 8.8 (8.4-10.6) mg/dL Troponin I < 0.01 (0.01-0.04) ng/mL HCG, Qual Negative (Negative) Ethyl Alcohol < 0.01 (0.01-0.03) % Imaging Data CT scan - head: Attestation: I have reviewed the pertinent imaging results. Radiologist's impression: Impression: No acute intracranial hemorrhage or mass effect. CTA Head and Neck: Attestation: I have reviewed the pertinent imaging results. Radiologist's impression: Preliminary Report: CTA head: No evidence of occlusion or significant aneurysm. CTA neck: No evidence of dissection or occlusion. ECG Data Attestation: I personally reviewed and interpreted this ECG as follows: Interpretation: Sinus bradycardia Rate 55 WA interval 132. No delta wave Normal QRS axis. Normal ST segment. No ST segment elevation depression. Normal T-waves QTC 418, QTC 399 Discharge Plan Discharge Clinical Impression: Vestibular migraine Patient Disposition: Home, Self-Care Condition: Stable Instructions: Migraine Headache (ED), Dizziness (ED) Additional Instructions: As we discussed, please come back to the ER right away if you have any concerns especially new headache, worsening nausea dizziness, or weakness in 1 of your arms or legs, trouble walking, or if you have any other concerns. Even if you are getting better, please recheck with your regular doctor within the next 3-5 days for re-evaluation. Prescriptions: No Action No Known Home Medications Follow Up/Referrals: Bhavani Hamlin DO [Primary Care Provider, Family Practice] Stand Alone Forms: [facility] Info Instructions
[2025-07-02 19:26] LABS: Hematocrit* 43.0 % (33.0-51.0); Hemoglobin* 14.4 gm/dL (12.0-16.0); Immature Granulocytes Abs Auto 0.02 K/uL (0.00-0.30); Immature Granulocytes Pct Auto 0.2 %; Lymphocytes Absolute Auto 2.73 K/uL (0.90-2.90); Mean Corpuscular HGB Conc 34 gm/dL (32-36); Mean Corpuscular Hemoglobin 32 pg (26-34); Mean Corpuscular Volume 95 fL (80-100); RDW Coefficient of Variation % 11.7 % (11.5-15.5); Red Blood Count* 4.54 m/uL (4.00-5.20); White Blood Count* 9.35 K/uL (4.50-11.00)
[2025-07-02] MEDS: ONDANSETRON 2 MG/ML inj 4 MG IVP (19:33)
[2025-07-02 19:37] LABS: Slide Review Reflex No
[2025-07-02 19:46] LABS: INR 0.93 (0.91-1.10); Prothrombin Time 13.2 Seconds
[2025-07-02 20:02] LABS: Chloride* 98 mmol/L (96-114); Potassium* 3.5 mmol/L (3.6-5.1); Sodium* 134 mmol/L (135-149)
[2025-07-02] MEDS: METOCLOPRAMIDE HCL 10 MG in 0.9 % SODIUM CHLORIDE 100 ml 100 ML 306 MG IVPB (20:03)
[2025-07-02 20:05] LABS: Anion Gap 11 mEq/L (7-15); Blood Urea Nitrogen* 15 mg/dL (5-24); Calcium* 8.8 mg/dL (8.4-10.6); Carbon Dioxide* 25 mmol/L (20-32); Creatinine* 0.8 mg/dL (0.5-1.5); Est. Creatinine Clearance* 79.11; Estimated Glomerular Filt Rate 100 ml/min; Glucose* 122 mg/dL (60-115)
[2025-07-02 20:07] LABS: HCG Qualitative Serum* Negative (Negative)
[2025-07-02 20:08] LABS: Ethanol* < 0.01 % (0.01-0.03)
== END 2025-07-02 22:45 | disposition home or self-care (01) ==
PROVIDERS: Emergency Provider Emergency Medicine; PCP Family Medicine
DX: G43.809 Other migraine, not intractable, without status migrainosus (principal); E87.6 Hypokalemia
CPT/HCPCS: 36415; 70450; 70496; 70498; 80048; 82077; 84484; 84703; 85025; 85610; 93005; 96361; 96374; 96375; 99284; 99285; J1200; J2060; J2405; J2765; J7030; Q9967